=== PATIENT | male | born 1975 | race Caucasian/White ===

== ENCOUNTER 2019-05-27 08:51 | Outpatient (CLI) | payer MEDICAID, SELFPAY ==
[2019-05-28 14:17] LABS: HEP C RNA Viral Load Quant <1.18 DETECTED Log IU/mL (NOT DETECTED); HEP C RNA Viral Load Quant <15 DETECTED IU/mL (NOT DETECTED)
== END 2019-05-27 08:52 | disposition home or self-care (01) ==
PROVIDERS: Family Provider Family Medicine; PCP Internal Medicine; Visit Provider Internal Medicine
DX: B18.2 Chronic viral hepatitis C (principal)
CPT/HCPCS: 87522

== ENCOUNTER 2019-07-14 10:51 | Emergency (ER) | payer OTHER, SELFPAY ==
[2019-07-14 11:07] VITALS: BP 118/75; PULSE 81; RESP 16; TEMP 36.9; O2SAT 95; BMI 32.5
--- NOTE | 2019-07-14 11:16 | ED_ITS ---
HPI - Dental/Oral General: Chief complaint: Dental/Oral Stated complaint: MOUTH PAIN Time Seen by Provider: 07/14/19 11:12 History of Present Illness: HPI Narrative: Right lower molar pain. Pain in the gums. UNAble get into the dentist he is been on antibiotics. MD Complaint: tooth pain Teeth map: 1. Onset (ago): day(s) Duration: constant Severity: moderate Context: history of dental caries Associated symptoms: Reports gum swelling Review of Systems ENMT: Reports: dental pain Psych: Denies: anxiety or depression PFSH ED PFSH: Social History Smoking and tobacco status: former smoker Physical Exam HENMT: TEETH & GINGIVA IMAGES: 1. Swollen gum and at area dental caries present Psych: COMMON NORMALS: mental status grossly normal Course Vital Signs: Vital signs: Vital Signs Temperature 98.4 F 07/14/19 11:07 Pulse Rate 81 07/14/19 11:07 Respiratory Rate 16 07/14/19 11:07 Blood Pressure 118/75 07/14/19 11:07 Pulse Oximetry 95 07/14/19 11:07 Discharge Plan Discharge Prescriptions: No Action methadone 10 mg tablet 10 mg PO Q8H 30 Days Qty: 90 RF: 0 Coding Level of Care Code ED Executive Office Manager for Dirk Vanessa
== END 2019-07-14 11:48 | disposition home or self-care (01) ==
PROVIDERS: Emergency Provider Nurse Practitioner Family; Family Provider Family Medicine; PCP Internal Medicine
DX: K02.9 Dental caries, unspecified (principal); Z87.891 Personal history of nicotine dependence
CPT/HCPCS: 12345; 99281

== ENCOUNTER 2019-12-13 16:42 | Emergency (ER) | payer OTHER, MEDICAID, SELFPAY ==
[2019-12-13 16:47] VITALS: BP 141/95; PULSE 85; RESP 18; TEMP 36.3; O2SAT 100; BMI 32.5
--- NOTE | 2019-12-13 17:15 | XRR_ITS ---
PROCEDURE INFORMATION: Exam: XR Right Hand Exam date and time: 12/13/2019 5:39 PM Age: 44 years old Clinical indication: Right; Patient HX: Hand pain after throwing football; Additional info: Trauma/pain; Get additional scaphoid view TECHNIQUE: Imaging protocol: XR Right hand. Views: 3 or more views. COMPARISON: No relevant prior studies available. FINDINGS: Bones/joints: Comminuted mildly displaced fracture proximal aspect 1st metacarpal. Mildly impacted and mildly displaced. Mild degenerative changes first carpometacarpal joint. Soft tissues: Normal. XR/XR hand RT min 3V* [id number] IMPRESSION: Comminuted mildly displaced fracture proximal aspect 1st metacarpal. Mildly impacted and mildly displaced.
--- NOTE | 2019-12-13 17:15 | W.ED.UPPEXIN ---
HPI - Extremity Injury (Upper) General: Chief Complaint: Extremity Injury, Upper Stated Complaint: broken right arm Time Seen by Provider: 12/13/19 17:15 Source: patient Mode of arrival: ambulatory Limitations: no limitations History of Present Illness: HPI narrative: Patient is a 44-year-old male who presents to ED today with a complaint of right hand pain. Patient tells me he was throwing a softball earlier today when he followed through and accidentally struck a wall. complaint: injury to: right and hand Onset (ago): hour(s) Other Extremity Injury: Right: hand Other injuries: none Handedness: right Place: home Severity: moderate Relieving factors: immobilization Exacerbating factors: movement of extremity Context: direct blow Associated symptoms: Reports no associated symptoms Review of Systems Musc: Reports: extremity pain (R hand pain) and extremity swelling (R hand) Neuro: Denies: numbness in extremities or sensory changes PFSH ED PFSH: Social History Smoking and tobacco status: former smoker Physical Exam Const: COMMON NORMALS: no acute distress, patient oriented x3, no limitations and alert Extremity: GENERAL: Yes normal exam except as noted OTHER: pt with TTP of R base of 1st digit and into thenar eminence-swelling noted; dec ROM of 1st digit secondary to pain Neuro: COMMON NORMALS: patient oriented x3 and no sensory deficits noted SENSORIUM/ORIENTATION: Yes alert Skin: NARRATIVE SKIN EXAM: normal skin exam Course Vital Signs: Vital signs: Vital Signs Temperature 97.4 F L 12/13/19 16:47 Pulse Rate 85 12/13/19 16:47 Respiratory Rate 18 12/13/19 16:47 Blood Pressure 141/95 12/13/19 16:47 Pulse Oximetry 100 12/13/19 16:47 MDM - Extremity Injury (Upper) MDM Narrative: Medical decision making narrative: pt will be splinted-he will need followup with hand surgeon; information placed with CM to get this appointment set up within the week Imaging Data^: XR R hand: My impression: comminuted slightly displaced fx of base of 1st metacarpal Discharge Plan Discharge Patient Disposition: Home Clinical Impression: Fracture of first metacarpal Qualifiers: Encounter type: initial encounter Fracture type: closed Metacarpal location: base Fracture morphology: unspecified fracture morphology Fracture alignment: displaced Laterality: right Qualified Code(s): S62.231A - Other displaced fracture of base of first metacarpal bone, right hand, initial encounter for closed fracture Condition: Stable Prescriptions: New hydrocodone-acetaminophen 5-325 mg tablet 1 tab PO Q6H PRN (Reason: pain) Qty: 20 RF: 0 No Action carisoprodol [Soma] 350 mg tablet 350 mg PO BID PRN (Reason: muscle pain) Qty: 60 RF: 5 methadone 10 mg tablet 10 mg PO Q8H 30 Days Qty: 90 RF: 0 Lidocaine Viscous 2 % solution 1 applic MUCOUS MEM Q4H PRN (Reason: pain) Qty: 100 RF: 0 Discharge Orders: Discharge Order (Routine); Ordered 12/13/19 Ordered By: Nasrin Brown Referrals: Jason Askew [Primary Care Provider] - Activity Restrictions/Additional Instructions: As discussed you only follow-up with a hand surgeon. Case management should contact you in the next 1 to 2 days to help set you up with this appointment. [facility] also [facility] to see if [facility] can [facility] you [facility] with [facility]. Coding Level of Care Code ED Principal Cloud Architect for Chg Fwd Exam Expanded Problem Focused
[2019-12-13 18:18] VITALS: BP 148/67; PULSE 84; RESP 18; O2SAT 96
--- NOTE | 2019-12-14 10:04 | DCPLANNER ---
Addendum entered by Tina Montes De Oca 12/14/19 11:21: Patients called correctional case records supervisor back was told that patient [facility] with the [facility] and was told that patient could go to either to [facility] or [facility] whichever one patient wanted to go to. jewelry store manager spoke with , she stated that it did not matter. jewelry store manager faxed patients records to [facility], called patients and informed her that referral was sent to [facility]. Original Note: jewelry store manager had message to schedule a follow up appointment for patient with a hand surgeon in [place]. Patient has [facility] insurance, correctional case records supervisor called [facility] to report that patient was seen in the ED, and that patient needed to follow up with a hand surgeon in [place]. jewelry store manager emailed patients records to August with [facility] in a secure email. jewelry store manager was told that patient would need to see his PACT team to determine which clinic patient needs to follow up at. jewelry store manager called patient, unable to reach patient and no voicemail set up at this time. jewelry store manager called patients and spoke with her about follow up appointment. jewelry store manager explained that since it was a referral to [place], that patient would need to speak with his PACT team to determine which clinic patient would need to follow up at. jewelry store manager gave patients case fitter phone number to contact correctional case records supervisor when it was determined what clinic patient wanted to use and correctional case records supervisor would start the referral process if needed.
--- NOTE | 2019-12-15 12:27 | DCPLANNER ---
Patient has a follow up appointment scheduled for December at 11:00. Clinic will call patient with appointment information.
--- NOTE | 2019-12-24 13:59 | DCPLANNER ---
Patient did attend appointment scheduled for 12.16.19 with Maida Lewis.
== END 2019-12-13 18:20 | disposition home or self-care (01) ==
PROVIDERS: Emergency Provider Physician Assistant; PCP Internal Medicine
DX: S62.231A Other displaced fracture of base of first metacarpal bone, right hand, initial encounter for closed fracture (principal); Z87.891 Personal history of nicotine dependence; W22.8XXA Striking against or struck by other objects, initial encounter
CPT/HCPCS: 12345; 73130; 99281; 99283

== ENCOUNTER 2021-04-16 16:57 | Emergency (ER) | payer MEDICAID, SELFPAY ==
[2021-04-16 17:04] VITALS: BP 132/87; PULSE 89; RESP 18; TEMP 36.7; O2SAT 98; BMI 32.5
--- NOTE | 2021-04-16 17:11 | XRR_ITS ---
PROCEDURE INFORMATION: Exam: XR Right Foot Exam date and time: 04/16/2021 5:11 PM Age: 45 years old Clinical indication: Patient HX: Injury: Kicked wooden door frame, right foot pain TECHNIQUE: Imaging protocol: XR Right foot. Views: 3 or more views. COMPARISON: No relevant prior studies available. FINDINGS: Bones/joints: Normal. Soft tissues: Normal. XR/XR foot RT min 3V* [id number] IMPRESSION: No acute findings.
--- NOTE | 2021-04-16 17:12 | ED_ITS ---
HPI - Extremity Problem General: Chief complaint: Extremity Injury, Lower Stated complaint: RIGHT FOOT INJURY Time Seen by Provider: 04/16/21 17:12 History of Present Illness: HPI Narrative: 45-year-old male patient comes in today with complaints of right foot pain after injury. Patient states that he had struck the door with his foot. Patient reports mid foot pain and great toe pain on the right foot. Patient appears well. Minimal swelling is noted. No obvious deformity is noted. Review of Systems General: Reports: 10 or more systems reviewed and unremarkable except in HPI and below Musc: Reports: other (Right foot injury) PENDING SALE TO [facility] ED PFSH: Medical History (Updated 04/16/21 @ 17:47 by ELISSA Vaca) Cervical disc disease First metacarpal bone fracture Social History (Updated 01/25/20 @ 08:27 by Lolis James LPN) Smoking and tobacco status: former smoker Alcohol intake: never Physical Exam Const: COMMON NORMALS: no acute distress and patient oriented x3 GENERAL APPEARANCE: cooperative HENMT: COMMON NORMALS: normocephalic HEAD & SCALP: normal to inspection and normocephalic Eye: GENERAL EYE: appearance normal, both eyes and all related structures Neck/C-Spine: COMMON NORMALS: full ROM Chest: COMMONS NORMALS: normal inspection of the chest Resp: COMMON NORMALS: normal respiratory effort EFFORT & INSPECTION: Yes able to speak in complete sentences Cardio: COMMON NORMALS: regular rate and regular rhythm RATE: regular rate RHYTHM: regular rhythm GI: COMMON NORMALS: non-tender Extremity: NARRATIVE EXTREMITY EXAM: Tenderness is noted in the distal great toe of the right foot, tenderness is also noted to the dorsal foot. No obvious swelling, pulses are intact, normal tendon function is noted. Neuro: COMMON NORMALS: patient oriented x3 and moves all extremities Psych: COMMON NORMALS: mental status grossly normal and cooperative Skin: COMMON NORMALS: no rashes or lesions noted GENERAL SKIN EXAM: no rashes or lesions noted Course Vital Signs: Vital signs: Vital Signs Temperature 98.1 F 04/16/21 17:04 Pulse Rate 89 04/16/21 17:30 Respiratory Rate 18 04/16/21 17:04 Blood Pressure 132/87 04/16/21 17:04 Pulse Oximetry 98 04/16/21 17:04 MDM - Extremity (Nontraumatic) MDM Narrative: Medical decision making narrative: Is in for injury to the right foot. On exam patient has tenderness on palpation to the great toe of the right foot. Patient also has some dorsal tenderness. Pulses are intact. No obvious swelling is noted. No obvious ecchymosis is noted. Vital signs are normal. Differential diagnosis includes fracture, contusion, sprain. X-ray notes a possible fracture of the great toe with no displacement. No other obvious fracture is noted.Patient will be placed in a postop shoe with elastic bandage. Patient was recommended to increase activity as tolerated. Use ice packs and elevation for discomfort. Also use acetaminophen and ibuprofen for further pain control. Patient reported understanding with recommendations for follow-up or return to the ER. Discharge Plan Discharge Patient Disposition: Home Clinical Impression: Fracture of toe Qualifiers: Encounter type: initial encounter Toe: great toe Fracture type: closed Phalanx: distal Fracture alignment: nondisplaced Laterality: right Qualified Code(s): S92.424A - Nondisplaced fracture of distal phalanx of right great toe, initial encounter for closed fracture Foot fracture, right Qualifiers: Encounter type: initial encounter Fracture type: closed Qualified Code(s): S92.901A - Unspecified fracture of right foot, initial encounter for closed fracture Condition: Stable Prescriptions: No Action carisoprodol [Soma] 350 mg tablet 350 mg PO BID PRN (Reason: muscle pain) Qty: 60 RF: 5 methadone 10 mg tablet 10 mg PO Q8H 30 Days Qty: 90 RF: 0 Discharge Orders: Discharge ED (Routine); Ordered 04/16/21 Ordered By: Dilshad Bonilla Referrals: Jason Askew [Primary Care Provider] - Discharge Diet: Usual diet Discharge Activity: Increase activity as tolerated Patient Instructions: Fractures - Phalanx (Toe), Opioid Safety Activity Restrictions/Additional Instructions: Activity as tolerated. Use a good supportive shoe. Elevate foot as much as possible for the next 2 to 3 days. Use acetaminophen and ibuprofen for pain. Use ice packs for further pain relief. Use crutches if needed due to inability to bear weight on foot. Follow-up with primary care in 1 week for recheck if pain persist without any improvement. Return to ER for new concerns. Stand Alone Forms: Work/School Release Coding Level of Care Code ED Fat Pressroom Worker for Dirk Vanessa
[2021-04-16 17:30] VITALS: PULSE 89
[2021-04-16 17:56] VITALS: PULSE 99; RESP 18; O2SAT 97
== END 2021-04-16 17:56 | disposition home or self-care (01) ==
PROVIDERS: Emergency Provider Nurse Practitioner Family; PCP Internal Medicine
DX: S92.424A Nondisplaced fracture of distal phalanx of right great toe, initial encounter for closed fracture (principal); S92.901A Unspecified fracture of right foot, initial encounter for closed fracture; Z87.891 Personal history of nicotine dependence; W22.09XA Striking against other stationary object, initial encounter
CPT/HCPCS: 73630; 99283; E0114

== ENCOUNTER → 2021-05-02 08:34 | Outpatient (BNVA) | payer OTHER, MEDICAID, SELFPAY | PROVIDERS: PCP Internal Medicine; Referring Provider Family Medicine; Visit Provider Internal Medicine | DX: E29.1 Testicular hypofunction (principal); E23.7 Disorder of pituitary gland, unspecified; F11.90 Opioid use, unspecified, uncomplicated; Z87.891 Personal history of nicotine dependence | CPT/HCPCS: 99204 ==

== ENCOUNTER 2021-05-03 07:38 | Outpatient (CLI) | payer OTHER, MEDICAID, SELFPAY ==
[2021-05-03 08:15] LABS: Basophils # 0.1 10^3/uL (0.0-0.1); Basophils % 0.8 %; Eosinophils # 0.4 10^3/uL (0.0-0.8); Eosinophils % 3.7 %; Hematocrit 50.8 % (42.0-52.0); Hemoglobin 17.4 g/dL (11.7-16.6); Lymphocytes # 3.9 10^3/uL (0.8-4.8); Mean Corpuscular HGB Conc 34.3 g/dL (30.0-36.0); Mean Corpuscular Hemoglobin 28.5 pg (28.0-34.0); Mean Corpuscular Volume 83.1 fl (80-94); Mean Platelet Volume 9.5 fL (7.4-10.4); Monocytes # 0.7 10^3/uL (0.2-0.9); Monocytes % 5.9 %; Neutrophils # 6.27 10^3/uL (1.8-7.7); Neutrophils % 55.3 %; Nucleated Red Blood Cells % 0 %; Platelet Count 455 10^3/cmm (130-400); Red Blood Count 6.11 10^6/uL (4.1-5.3); Red Cell Distribution Width 14.3 % (12.1-15.1); White Blood Count 11.3 10^3/uL (4.0-10.0)
[2021-05-03 08:53] LABS: Free T4 Free Thyroxine 1.02 ng/dL (0.82-1.77); Prostate Specific Antigen 0.258 ng/mL (0-4); Testosterone Total 53.6 ng/dL (249-836); Thyroid Stimulating Hormone 2.79 uIU/mL (0.27-4.20)
[2021-05-03 09:14] LABS: Cortisol Random 9.35 ug/dL (2.47-19.5)
[2021-05-03 09:37] LABS: Follicle Stimulating Hormone 4.5 mIU/mL (1.5-12.4); Luteinizing Hormone 1.4 mIU/mL (1.7-8.6); Prolactin 13.84 ng/mL (4.0-15.2)
== END 2021-05-03 07:39 | disposition home or self-care (01) ==
LOC: LAB 07:41
PROVIDERS: PCP Internal Medicine; Visit Provider Internal Medicine
DX: E23.7 Disorder of pituitary gland, unspecified (principal); E29.1 Testicular hypofunction
CPT/HCPCS: 36415; 82533; 83001; 83002; 84146; 84153; 84402; 84403; 84439; 84443; 85025

== ENCOUNTER 2021-05-04 07:46 | Outpatient (CLI) | payer MEDICAID, SELFPAY ==
[2021-05-04 08:23] LABS: Ferritin 130 ng/mL (30-400); Iron 124 ug/dL (59-158)
== END 2021-05-04 07:47 | disposition home or self-care (01) ==
PROVIDERS: PCP Internal Medicine; Visit Provider Internal Medicine
DX: E23.7 Disorder of pituitary gland, unspecified (principal); E29.1 Testicular hypofunction
CPT/HCPCS: 82728; 83540

== ENCOUNTER 2021-05-24 12:28 | Inpatient (IN) | payer MEDICAID, SELFPAY ==
[2021-05-24] VITALS (12 sets, daily range): BP systolic 127–172; BP diastolic 77–110; PULSE 94; RESP 16; TEMP 36.8; O2SAT 92–99; BMI 29.8
--- NOTE | 2021-05-24 12:48 | CT_ITS ---
WS: [id number] CT HEAD NONCONTRAST HISTORY: AMS TECHNIQUE: Contiguous axial imaging performed through the brain in 2.5 mm imaging. Bone and soft tiss ue windows. Sagittal and coronal reformats reviewed. All CT scans at [facility] use at least one of these dose optimization techniques: automated exposure control; mA and/or kV adjustment per pa tient size (includes targeted exams where dose is matched to clinical indication); or iterative recon struction. DLP: 1107.18 mGy.cm COMPARISON: None available. Artifacts through the brain as the patient has not isocentered within the gantry. No midline shift or mass effect. No acute blood products are identified. Small focal areas of hemorrh age would be easily be obscured with this amount of artifact through the skull. There is a prior lacu michaelle infarct in the internal limb of the LEFT internal capsule. Moderate chronic microvascular ischemi c type changes in the white matter, greatest above the ventricles. Ventricles: Normal size with no hydrocephalus. Paranasal sinuses: Mucoperiosteal thickening in the RIGHT maxillary and ethmoid sinuses. No air-fluid levels. Mastoid air cells: Moderate amount of fluid in the RIGHT mastoid air cells. LEFT mastoid air cells ar e clear. Calvarium and scalp: Skull is intact with no soft tissue edema or swelling. CT/CT head wo con* [id number] IMPRESSION: 1. Quality of this examination is limited by artifact. 2. No acute hemorrhage or edema. 3. Mild chronic microvascular ischemic type changes and a remote lacunar infar ct in the LEFT internal capsule.
[2021-05-24] MEDS: midazolam 1 mg/mL INJ 2 mL 2 MG IVP (13:44)
--- NOTE | 2021-05-24 13:46 | ED_ITS ---
HPI - Altered Mental Status General: Chief Complaint: Altered Mental Status Stated Complaint: AMS, BACK PAIN Time Seen by Provider: 05/24/21 12:29 Source: family and EMS Mode of arrival: EMS Limitations: altered mental status History of Present Illness: HPI narrative: 45-year-old male brought in by EMS with generalized weakness and confusion, worsening over the past 3 days. History of chronic back pain, on methadone. He has been moving lots of heavy furniture over the last week, and has been complaining of increased back pain. He is also been complaining of chest pain, headache, and right arm pain Was in bed all day yesterday, not eating or drinking. This morning he was confused, incoherent, had urinated on himself overnight, and not able to ambulate at all. No recent trauma. No fever. No sick contacts. No nausea, vomiting. No roye-tby-flxfeza medications. No recent changes methadone dose. As far as the knows, he has been taking only the prescribed amount daily, no extra doses. He does have a history of polysubstance abuse, but no current alcohol or drug use per . MD complaint: altered mental status, confusion, decreased responsiveness and weakness Onset (ago): day(s) Timing confirmed by: spouse Severity: severe Consistency of symptoms: Waxing and Waning Review of Systems General: Reports: ROS unobtainable due to mental status [facility] ED PFSH: Medical History Cervical disc disease Chronic hepatitis C Depression First metacarpal bone fracture Surgical History History of knee surgery Family History Father No problems noted. Mother Dementia Social History Smoking and tobacco status: former smoker Quit status (tobacco): has quit using tobacco Second hand smoke exposure: No Smoking risk assessment/counseling performed?: No Alcohol intake: never Desire information about alcohol rehabilitation?: No Counseling given: No Desire information about substance/drug rehabilitation?: No Counseling given: No Adopted: No Caregiver/support person: No Lives independently: Yes Household members: spouse Housing: House Marital status: Number of children: 1 Highest education level completed: Some College, No Degree service: Yes Current occupational status: disabled History of recent travel: No Physical Exam Const: EXAM LIMITATIONS: altered mental status GENERAL APPEARANCE: lethargic and ill appearing; not diaphoretic NUTRITIONAL APPEARANCE: overweight ORIENTATION/CONSCIOUSNESS: Yes confused and Yes lethargic HENMT: COMMON NORMALS: normocephalic, atraumatic and Normal external nose present HEAD & SCALP: normocephalic and atraumatic FACE & SINUS: normal facial exam and face symmetric NOSE: Normal external nose present MOUTH: malodorous breath Eye: COMMON NORMALS: conjunctivae normal and no scleral icterus GENERAL EYE: appearance normal, both eyes and all related structures CONJUNCTIVA: Yes conjunctivae normal PUPIL: Yes pupil size - right Right pupil size (mm): 2 and Yes pupil size - left EOM: No Nystagmus present DIRECT OPHTHALMOSCOPY: No photophobia Neck/C-Spine: COMMON NORMALS: no JVD Lymph: LYMPHATIC: no lymphadenopathy noted Chest: COMMONS NORMALS: normal inspection of the chest Resp: EFFORT & INSPECTION: Yes labored Cardio: COMMON NORMALS: no JVD, regular rate and regular rhythm RATE: regular rate RHYTHM: regular rhythm GI: COMMON NORMALS: Soft to palpation PALPATION: Yes Soft to palpation and Yes Tenderness to palpation present (GI) (diffuse) Back/Pelvis: COMMON NORMALS: thoracic and lumbar spine normal to inspection GENERAL BACK: No erythema, No ecchymosis, No scar(s), No swelling, No tenderness and No Romero-Meyer sign THORACIC SPINE/UPPER BACK: Yes normal to inspection LUMBAR SPINE/LOWER BACK: Yes normal to inspection and No lumbar spinal tenderness SACRUM: no ecchymosis Extremity: COMMON NORMALS: capillary refill normal Neuro: SEVERIANO COMA SCALE: document GCS findings [place] coma scale eye opening: Spontaneous Severiano coma scale verbal response: Confused [place] coma scale motor response: Abnormal flexion Severiano coma scale total score: 11 SENSORIUM/ORIENTATION: Yes Orientation impaired and Yes lethargic SPEECH: abnormal speech Details: garbled and slurred GAIT: Yes Unable to assess gait SENSORY EXAM: Yes Perineum abnormal Perineum sensation details: normal MOTOR EXAM: Abnormal muscle tone present hypertonic: all and Motor abnormalites present dystonia DEEP TENDON REFLEXES: Right patellar reflex intensity grade: 1+ and Left patellar reflex intensity grade: 1+ Procedures EJ/Peripheral Line Neck R: Time Out Performed: Yes Skin Cleansed in Sterile Fashion: Yes Size (gauge): 18 IV Secured and Dressing Applied: Yes Patient Tolerated Procedure: well Additional Comments: Right Internal jugular vein with a 2.5in peripheral catheter Lumbar Puncture Time Out Performed: Yes Patient Position: right lateral decubitus Skin Prep: Povidone-Iodine 1% Local Anesthetic: lidocaine 1% Amount of anesthesia used (mL): 3 Spinal Needle Gauge: 22G Interspace Used: L4-L5 Complications: unable to obtain CSF Course Vital Signs: Vital signs: Vital Signs Temperature 98.2 F 05/24/21 12:32 Pulse Rate 94 05/24/21 12:32 Respiratory Rate 16 05/24/21 12:32 Blood Pressure 143/110 05/24/21 22:00 Pulse Oximetry 99 05/24/21 22:00 MDM - Altered Mental Status MDM Narrative: Medical decision making narrative: 45-year-old male with altered mental status. Afebrile. CT head negative for any acute process. CK 7781, decreased to 5778 following 3L fluid bolus LFTs also elevated, likely in conjunction with rhabdomyolysis CRP, Pro-Juan, and WBC count elevated. No bandemia. Patchy bilateral infiltrates on imaging. Treated with Cefepime 2g IV x1 Respiratory panel; Coronovirus (other) positive (not COVID-19) No other acute abnormalities on CT abdomen/pelvis LP attempted, unsuccessful. Admit for continued workup, LP under fluoro, blood cultures, Discussed with Dr Yang; he accepts the admission Differential DDx: Meningitis, infectious/autoimmune encephalitis, metabolic encephalopathy, cauda equina syndrome, spinal epidural abscess, polysubstance abuse, drug-induced rhabdomyolysis, acute kidney injury, CVA,sepsis, pneumonia. Differential Diagnosis: Differential diagnosis altered mental status: Likely altered mental status, delirium, hypoglycemia, hyponatremia, subarachnoid hemorrhage and sepsis Medical Records: Attestation: I reviewed the patient's medical records. Lab Data: Attestation: I reviewed the patient's lab results. Labs: Lab Results 05/24/21 05/24/21 05/24/21 13:40 13:40 13:40 WBC 14.6 10^3/uL H 10 ^3/uL (4.0-10.0) RBC 5.12 10^6/uL 10^6 /uL (4.1-5.3) Hgb 14.6 g/dL g/dL (11.7-16.6) Hct 42.9 % % (42.0-52.0) MCV 83.8 fl fl (80-94) MCH 28.5 pg pg (28.0-34.0) MCHC 34.0 g/dL g/dL (30.0-36.0) RDW 14.3 % % (12.1-15.1) Plt Count 279 10^3/cmm 10^3 /cmm (130-400) MPV 10.1 fL fL (7.4-10.4) Neut % (Auto) 84.4 % % Lymph % (Auto) 10.0 % % Phelps % (Auto) 4.7 % % Eos % (Auto) 0.0 % % Baso % (Auto) 0.3 % % Neut # (Auto) 12.31 10^3/uL H 1 0^3/uL (1.8-7.7) Lymph # (Auto) 1.5 10^3/uL 10^3/ uL (0.8-4.8) Phelps # (Auto) 0.7 10^3/uL 10^3/ uL (0.2-0.9) Eos # (Auto) 0.0 10^3/uL 10^3/ uL (0.0-0.8) Baso # (Auto) 0.0 10^3/uL 10^3/ uL (0.0-0.1) Nucleated RBC % (a uto) 0 % % Nucleated RBCs # 0.0 /100WBC /100W BC Specimen Type Sample Site ABG pH ABG pCO2 ABG pO2 ABG HCO3 ABG O2 Saturation ABG Base Excess James Test A-a O2 Gradient Hematocrit Hgb O2 Saturation Carboxyhemoglobin Methemoglobin Total Hemoglobin Ionized Calcium O2 Delivery Device O2 Liters/Min FiO2 Drying Machine Receiver ID Sodium 140 mmol/L mmol/L (136-145) Potassium 4.4 mmol/L mmol/L (3.5-5.1) Chloride 101 mmol/L mmol/L (98-107) Carbon Dioxide 23 mmol/L mmol/L (22-29) Anion Gap 20.4 H (5-19) BUN 29 mg/dL H mg/dL (6-20) Creatinine 1.2 mg/dL mg/dL (0.7-1.2) GFR Calculation 66.1 mL/min L mL/ min (90-130) Glucose 101 mg/dL mg/dL (65-115) Calculated Osmolal ity 296 mOsm/kg H mOs m/kg (285-295) Lactic Acid Calcium 8.6 mg/dL mg/dL (8.5-10.5) Magnesium 2.2 mg/dL mg/dL (1.7-2.3) Total Bilirubin 0.5 mg/dL mg/dL (0.15-1.2) AST 916 U/L H U/L (0-40) ALT 1282 U/L H U/L (0-41) Alkaline Phosphata se 107 IU/L IU/L (40-130) Ammonia 27 umol/L umol/L (16-60) Creatine Kinase 7781 U/L H* U/L (39-308) C-Reactive Protein 178.9 mg/L H mg/L (0.0-4.9) Total Protein 7.5 g/dL g/dL (6.6-8.7) Albumin 3.9 g/dL g/dL (3.5-5.2) Globulin 3.6 g/dL g/dL (1.3-4.6) Procalcitonin 13.92 ng/mL H ng/ mL (0-0.5) Urine Color Urine Appearance Urine pH Ur Specific Gravit y Urine Protein Urine Glucose (UA) Urine Ketones Urine Blood Urine Nitrate Urine Bilirubin Urine Urobilinogen Ur Leukocyte Fransisca ase Urine RBC Urine WBC Ur Squamous Epith Cells Amorphous Sediment Urine Bacteria Urine Opiates Scre en Ur Barbiturates Sc reen Ur Phencyclidine S crn Ur Amphetamines Sc reen U Benzodiazepines Scrn Urine Cocaine Scre en U Marijuana (THC) Screen Ethyl Alcohol < 10 mg/dL mg/dL (0-10) Coronavirus 229E ( PCR) SARS-CoV-2 (PCR) 05/24/21 05/24/21 05/24/21 13:40 13:45 14:57 WBC RBC Hgb Hct MCV MCH MCHC RDW Plt Count MPV Neut % (Auto) Lymph % (Auto) Phelps % (Auto) Eos % (Auto) Baso % (Auto) Neut # (Auto) Lymph # (Auto) Phelps # (Auto) Eos # (Auto) Baso # (Auto) Nucleated RBC % (a uto) Nucleated RBCs # Specimen Type Sample Site ABG pH ABG pCO2 ABG pO2 ABG HCO3 ABG O2 Saturation ABG Base Excess James Test A-a O2 Gradient Hematocrit Hgb O2 Saturation Carboxyhemoglobin Methemoglobin Total Hemoglobin Ionized Calcium O2 Delivery Device O2 Liters/Min FiO2 Drying Machine Receiver ID Sodium Potassium Chloride Carbon Dioxide Anion Gap BUN Creatinine GFR Calculation Glucose Calculated Osmolal ity Lactic Acid 1.6 mmol/L mmol/L (0.5-2.2) Calcium Magnesium Total Bilirubin AST ALT Alkaline Phosphata se Ammonia Creatine Kinase C-Reactive Protein Total Protein Albumin Globulin Procalcitonin Urine Color Yellow (Yellow) Urine Appearance Clear (CLEAR) Urine pH 6 (5-7) Ur Specific Gravit y 1.010 (1.005-1.030) Urine Protein Neg (Negative) Urine Glucose (UA) Norm (Normal) Urine Ketones Negative (Negative) Urine Blood 2+ H (Negative) Urine Nitrate Negative (Negative) Urine Bilirubin Neg (Negative) Urine Urobilinogen 1 mg/dL H mg/dL (Negative) Ur Leukocyte Fransisca ase Negative (Negative) Urine RBC 0-4 /hpf H /hpf (0-2) Urine WBC Rare /hpf /hpf (0-5) Ur Squamous Epith Cells None /hpf /hpf (0-5) Amorphous Sediment Not Reportable Urine Bacteria None /hpf /hpf (NONE) Urine Opiates Scre en Ur Barbiturates Sc reen Ur Phencyclidine S crn Ur Amphetamines Sc reen U Benzodiazepines Scrn Urine Cocaine Scre en U Marijuana (THC) Screen Ethyl Alcohol Coronavirus 229E ( PCR) Detected A (NOT DETECT) SARS-CoV-2 (PCR) Not detected (NOT DETECT) 05/24/21 05/24/21 05/24/21 14:57 15:09 18:20 WBC RBC Hgb Hct MCV MCH MCHC RDW Plt Count MPV Neut % (Auto) Lymph % (Auto) Phelps % (Auto) Eos % (Auto) Baso % (Auto) Neut # (Auto) Lymph # (Auto) Phelps # (Auto) Eos # (Auto) Baso # (Auto) Nucleated RBC % (a uto) Nucleated RBCs # Specimen Type Arterial Sample Site Radial, left ABG pH 7.47 H (7.35-7.45) ABG pCO2 31.5 mmHg L mmHg (35-45) ABG pO2 91.2 mmHg mmHg (80.0-100.0) ABG HCO3 23.1 mmol/L mmol/ L (22-26) ABG O2 Saturation 98.2 ABG Base Excess 0.3 mmol/L mmol/L (-2.0-2.0) James Test Pos A-a O2 Gradient 5.5 mmHg mmHg (5-10) Hematocrit 42.7 % % (42-52) Hgb O2 Saturation 97.3 % % (95-100) Carboxyhemoglobin 0.5 %THgb %THgb (0.4-20.1) Methemoglobin 0.4 % % (0.4-1.5) Total Hemoglobin 13.9 g/dL L g/dL (14-18) Ionized Calcium 1.1 mmol/L mmol/L (1.1-1.4) O2 Delivery Device Nc O2 Liters/Min 1.0 % % FiO2 24.0 % % Drying Machine Receiver ID Monro Sodium 145.0 mmol/L H mm ol/L 143 mmol/L mmol/L (131-143) (136-145) Potassium 4.1 mmol/L mmol/L 4.4 mmol/L mmol/L (3.5-5.0) (3.5-5.1) Chloride 108 mmol/L H mmol /L (98-107) Carbon Dioxide 21 mmol/L L mmol/ L (22-29) Anion Gap 18.4 (5-19) BUN 26 mg/dL H mg/dL (6-20) Creatinine 1.1 mg/dL mg/dL (0.7-1.2) GFR Calculation 73.1 mL/min L mL/ min (90-130) Glucose 103.0 mg/dL mg/dL 92 mg/dL mg/dL (70-115) (65-115) Calculated Osmolal ity 300 mOsm/kg H mOs m/kg (285-295) Lactic Acid Calcium 7.9 mg/dL L mg/dL (8.5-10.5) Magnesium 2.0 mg/dL mg/dL (1.7-2.3) Total Bilirubin 0.5 mg/dL mg/dL (0.15-1.2) AST 694 U/L H U/L (0-40) ALT 1081 U/L H U/L (0-41) Alkaline Phosphata se 96 IU/L IU/L (40-130) Ammonia Creatine Kinase 5778 U/L H* U/L (39-308) C-Reactive Protein Total Protein 6.6 g/dL g/dL (6.6-8.7) Albumin 3.5 g/dL g/dL (3.5-5.2) Globulin 3.1 g/dL g/dL (1.3-4.6) Procalcitonin Urine Color Urine Appearance Urine pH Ur Specific Gravit y Urine Protein Urine Glucose (UA) Urine Ketones Urine Blood Urine Nitrate Urine Bilirubin Urine Urobilinogen Ur Leukocyte Fransisca ase Urine RBC Urine WBC Ur Squamous Epith Cells Amorphous Sediment Urine Bacteria Urine Opiates Scre en Negative ng/mL ng /mL (Negative) Ur Barbiturates Sc reen Negative ng/mL ng /mL (Negative) Ur Phencyclidine S crn Negative ng/mL ng /mL (Negative) Ur Amphetamines Sc reen Negative ng/mL ng /mL (Negative) U Benzodiazepines Scrn Negative ng/mL ng /mL (Negative) Urine Cocaine Scre en Negative ng/mL ng /mL (Negative) U Marijuana (THC) Screen Negative ng/mL ng /mL (Negative) Ethyl Alcohol Coronavirus 229E ( PCR) SARS-CoV-2 (PCR) Critical Care Time Critical Care Time: Critical Care Time: Yes Total Critical Care Time: 60 Attestation: This case had a high probability of a clinically significant, sudden, or life threatening deterioration of this patient's condition which required my full and direct attention, intervention and personal management. Neuro deterioration, encephalopathy, decreased responsiveness serial examinations and lab review Discharge Plan Discharge Patient Disposition: Admitted As Inpatient Admit Provider: Michele Yang Clinical Impression: Encephalopathy acute, Other coronavirus as the cause of diseases classified elsewhere Altered mental status Qualifiers: Altered mental status type: somnolence Qualified Code(s): R40.0 - Somnolence Pneumonia Qualifiers: Pneumonia type: due to unspecified organism Laterality: bilateral Lung location: unspecified part of lung Qualified Code(s): J18.9 - Pneumonia, unspecified organism Rhabdomyolysis Qualifiers: Rhabdomyolysis type: non-traumatic Qualified Code(s): M62.82 - Rhabdomyolysis Chronic low back pain Qualifiers: Back pain laterality: bilateral Sciatica presence: unspecified whether sciatica present Qualified Code(s): M54.50 - Low back pain, unspecified Condition: Stable Coding Level of Care Code ED 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
[2021-05-24 13:49] LABS: Basophils % 0.3 %; Hematocrit 42.9 % (42.0-52.0); Hemoglobin 14.6 g/dL (11.7-16.6); Lymphocytes # 1.5 10^3/uL (0.8-4.8); Mean Corpuscular Hemoglobin 28.5 pg (28.0-34.0); Mean Corpuscular Volume 83.8 fl (80-94); Mean Platelet Volume 10.1 fL (7.4-10.4); Monocytes # 0.7 10^3/uL (0.2-0.9); Monocytes % 4.7 %; Neutrophils # 12.31 10^3/uL (1.8-7.7); Neutrophils % 84.4 %; Nucleated Red Blood Cells % 0 %; Platelet Count 279 10^3/cmm (130-400); Red Blood Count 5.12 10^6/uL (4.1-5.3); Red Cell Distribution Width 14.3 % (12.1-15.1); White Blood Count 14.6 10^3/uL (4.0-10.0)
[2021-05-24 14:09] LABS: Lactic Sepsis W/Reflex 1.6 mmol/L (0.5-2.2)
[2021-05-24 14:10] LABS: Ammonia 27 umol/L (16-60)
[2021-05-24 14:12] LABS: Albumin Level 3.9 g/dL (3.5-5.2); Alkaline Phosphatase 107 IU/L (40-130); Anion Gap 20.4 (5-19); Blood Urea Nitrogen 29 mg/dL (6-20); C Reactive Protein 178.9 mg/L (0.0-4.9); Calcium 8.6 mg/dL (8.5-10.5); Carbon Dioxide 23 mmol/L (22-29); Chloride 101 mmol/L (98-107); Globulin 3.6 g/dL (1.3-4.6); Glomerular Filtration Rate 66.1 mL/min (90-130); Glucose 101 mg/dL (65-115); Magnesium 2.2 mg/dL (1.7-2.3); Osmolality Calculated 296 mOsm/kg (285-295); Potassium 4.4 mmol/L (3.5-5.1); Sodium 140 mmol/L (136-145); Total Bilirubin 0.5 mg/dL (0.15-1.2); Total Protein 7.5 g/dL (6.6-8.7)
[2021-05-24 14:17] LABS: Alcohol Level < 10 mg/dL (0-10)
--- NOTE | 2021-05-24 14:17 | XR_ITS ---
WS: [id number] Exam: XR chest 1V portable [id number] Date/Time of Exam: 05/24/2021 2:17 PM Reason For Exam: Altered mental status, chest pain Comparison 06/10/2010. Groundglass infiltrate seen throughout the left lung suggesting active pneumonia. There may be some m ild infiltrate in the right upper lung zone also. Chronic elevation of the right diaphragm. Normal ca rdiomediastinal silhouette for technique. Trace right pleural effusion. Bony structures are intact. XR/XR chest 1V portable [id number] IMPRESSION: 1. Diffuse groundglass infiltrate throughout the left lung. There may be some i nfiltrate in the upper right lung zone also. Findings suggest pneumonia. The pa ttern is nonspecific but this could be seen with Covid pneumonia. 2. Trace right pleural effusion.
[2021-05-24 14:18] LABS: Procalcitonin 13.92 ng/mL (0-0.5)
[2021-05-24 14:23] LABS: Alanine Aminotransferase 1282 U/L (0-41)
[2021-05-24 14:26] LABS: Aspartate Amino Transferase 916 U/L (0-40); Creatine Phosphokinase 7781 U/L (39-308)
[2021-05-24] MEDS: sodium chloride 0.9% 1,000 ML 999 ML IV ×2 (14:34→15:18)
[2021-05-24 15:11] LABS: Add Urine Microscopic? YES; Bilirubin Urine Neg (Negative); Blood Urine 2+ (Negative); Glucose Urine UA Norm (Normal); Ketones Urine Negative (Negative); Leukocyte Esterase Urine Negative (Negative); Nitrate Urine Negative (Negative); Protein Urine Neg (Negative); Urine Appearance Clear (CLEAR); Urine Color Yellow (Yellow); Urobilinogen Urine 1 mg/dL (Negative); pH Urine 6 (5-7)
[2021-05-24 15:17] LABS: Add Urine Culture? No; RBC Urine 0-4 /hpf (0-2); WBC Urine RARE /hpf (0-5)
[2021-05-24 15:18] LABS: Amphetamines Screen Urine Negative (Negative); Barbiturates Screen Urine Negative (Negative); Benzodiazepines Screen Urine Negative (Negative); Cocaine Screen Urine Negative (Negative); Opiate Screen Urine Negative (Negative); PCP Screen Urine Negative (Negative); THC Screen Urine Negative (Negative)
[2021-05-24 15:31] LABS: ABG PCO2 31.5 mmHg (35-45); ABG PH Result 7.47 (7.35-7.45); Arterial Blood Gas Hematocrit 42.7 % (42-52); Base Excess ABG 0.3 mmol/L (-2.0-2.0); Blood Gas Allen Test Pos; Blood Gas Sample Type Arterial; Carboxyhemoglobin 0.5 %THgb (0.4-20.1); HCO3 ABG 23.1 mmol/L (22-26); HGB O2 Sat 97.3 % (95-100); Ionized Calcium Level - ABG 1.1 mmol/L (1.1-1.4); Methemoglobin 0.4 % (0.4-1.5); Oxygen Saturation ABG 98.2; PO2 ABG 91.2 mmHg (80.0-100.0); Potassium Level - ABG 4.1 mmol/L (3.5-5.0); Total Hemoglobin 13.9 g/dL (14-18)
[2021-05-24 15:32] LABS: Alveolar-Arterial Oxygen Gradi 5.5 mmHg (5-10); Blood Gas Operator Identificat MONRO; Blood Gas Sample Site Radial, left; Oxygen Device NC
[2021-05-24] MEDS: LORazepam 2 mg/mL INJ 1 mL IVP (16:10)
[2021-05-24] MEDS: cefepime 2,000 MG in sodium chloride 0.9% (plus) 50 ML 100 MG IV (16:10)
[2021-05-24 16:14] LABS: Adenovirus Not Detected (NOT DETECT); Chlamydia Pneumoniae Not Detected (NOT DETECT); Coronavirus 229E,HKU1,NL63,OC4 Detected (NOT DETECT); Human Metapneumovirus Not Detected (NOT DETECT); Human Rhinovirus/Enterovirus Not Detected (NOT DETECT); Influenza A Not Detected (NOT DETECT); Influenza A H1 Not Detected (NOT DETECT); Influenza A H1-2009 Not Detected (NOT DETECT); Influenza A H3 Not Detected (NOT DETECT); Influenza B Not Detected (NOT DETECT); Mycoplasma Pneumoniae Not Detected (NOT DETECT); Parainfluenza Virus Type 1 Not Detected (NOT DETECT); Parainfluenza Virus Type 2 Not Detected (NOT DETECT); Parainfluenza Virus Type 3 Not Detected (NOT DETECT); Parainfluenza Virus Type 4 Not Detected (NOT DETECT); Respiratory Syncytial Virus A Not Detected (NOT DETECT); Respiratory Syncytial Virus B Not Detected (NOT DETECT); SARS-COV-2 Not Detected (NOT DETECT)
--- NOTE | 2021-05-24 16:31 | CTR_ITS ---
PROCEDURE INFORMATION: Exam: CT Chest Without Contrast; Diagnostic Exam date and time: 05/24/2021 4:31 PM Age: 45 years old Clinical indication: Other: Weakness; Patient HX: Abdominal tenderness w/ abnormal xray. AMS; Additional info: Abnormal xray, abdominal tenderness, altered TECHNIQUE: Imaging protocol: Diagnostic computed tomography of the chest without contrast. Radiation optimization: All CT scans at this facility use at least one of these dose optimization techniques: automated exposure control; mA and/or kV adjustment per patient size (includes targeted exams where dose is matched to clinical indication); or iterative reconstruction. COMPARISON: CR XR chest 1V portable [id number] 05/24/2021 2:27 PM RADIATION DOSE METRICS: Total DLP (mGy-cm): 3053.75 FINDINGS: Lungs: Patchy bilateral airspace infiltrates. Pleural spaces: Unremarkable. No pneumothorax. No pleural effusion. Heart: Unremarkable. No cardiomegaly. No pericardial effusion. Aorta: Unremarkable. No aortic aneurysm. Lymph nodes: Scattered prominent mediastinal lymph nodes measuring up to 8.2 mm short axis, nonspecific. Bones/joints: Unremarkable. No acute fracture. Soft tissues: Unremarkable. PROCEDURE INFORMATION: Exam: CT Abdomen And Pelvis Without Contrast Exam date and time: 05/24/2021 4:31 PM Age: 45 years old Clinical indication: Other: Weakness; Patient HX: Abdominal tenderness w/ abnormal xray. AMS; Additional info: Abnormal xray, abdominal tenderness, altered TECHNIQUE: Imaging protocol: Computed tomography of the abdomen and pelvis without contrast. Radiation optimization: All CT scans at this facility use at least one of these dose optimization techniques: automated exposure control; mA and/or kV adjustment per patient size (includes targeted exams where dose is matched to clinical indication); or iterative reconstruction. COMPARISON: CR XR chest 1V portable [id number] 05/24/2021 2:27 PM RADIATION DOSE METRICS: Total DLP (mGy-cm): 3053.75 FINDINGS: Liver: Normal. No mass. Gallbladder and bile ducts: Normal. No calcified stones. No ductal dilation. Pancreas: Normal. No ductal dilation. Spleen: Normal. No splenomegaly. Adrenal glands: Normal. No mass. Kidneys and ureters: Bilateral punctate nonobstructing renal calyceal stones. Stomach and bowel: Constipation. Appendix: No evidence of appendicitis. Intraperitoneal space: Unremarkable. No free air. No significant fluid collection. Vasculature: Unremarkable. No abdominal aortic aneurysm. Lymph nodes: Unremarkable. No enlarged lymph nodes. Urinary bladder: Enriquez catheter in the urinary bladder with some air presumed iatrogenic. Reproductive: Unremarkable as visualized. Bones/joints: Unremarkable. No acute fracture. Soft tissues: Small left inguinal hernia containing omentum without bowel or inflammation. CT/CT chest abd pel wo con IMPRESSION: 1. Patchy bilateral airspace infiltrates. 2. Scattered prominent mediastinal lymph nodes measuring up to 8.2 mm short axis, nonspecific. IMPRESSION: 1. Negative for focal acute inflammatory process in the abdomen or pelvis. 2. Bilateral punctate nonobstructing renal calyceal stones. 3. Constipation. 4. Enriquez catheter in the urinary bladder with some air presumed iatrogenic. 5. Small left inguinal hernia containing omentum without bowel or inflammation.
[2021-05-24] MEDS: lactated ringers 1,000 ML 999 ML IV (17:11)
[2021-05-24 19:22] LABS: Albumin Level 3.5 g/dL (3.5-5.2); Alkaline Phosphatase 96 IU/L (40-130); Anion Gap 18.4 (5-19); Aspartate Amino Transferase 694 U/L (0-40); Blood Urea Nitrogen 26 mg/dL (6-20); Calcium 7.9 mg/dL (8.5-10.5); Carbon Dioxide 21 mmol/L (22-29); Chloride 108 mmol/L (98-107); Globulin 3.1 g/dL (1.3-4.6); Glomerular Filtration Rate 73.1 mL/min (90-130); Glucose 92 mg/dL (65-115); Osmolality Calculated 300 mOsm/kg (285-295); Potassium 4.4 mmol/L (3.5-5.1); Sodium 143 mmol/L (136-145); Total Bilirubin 0.5 mg/dL (0.15-1.2); Total Protein 6.6 g/dL (6.6-8.7)
[2021-05-24 19:34] LABS: Alanine Aminotransferase 1081 U/L (0-41)
--- NOTE | 2021-05-24 19:35 | CTR_ITS ---
PROCEDURE INFORMATION: Exam: CT Head Without Contrast Exam date and time: 05/24/2021 7:35 PM Age: 45 years old Clinical indication: Altered mental status/memory loss; Additional info: Reeval, 1st CT motion artifact, AMS, TECHNIQUE: Imaging protocol: Computed tomography of the head without contrast. Radiation optimization: All CT scans at this facility use at least one of these dose optimization techniques: automated exposure control; mA and/or kV adjustment per patient size (includes targeted exams where dose is matched to clinical indication); or iterative reconstruction. COMPARISON: CT head wo con* [id number] 05/24/2021 2:30 PM RADIATION DOSE METRICS: Total DLP (mGy-cm): 2068.9 FINDINGS: Brain: Mild diffuse white matter disease likely reflecting chronic microvascular ischemic changes. Cerebral ventricles: No ventriculomegaly. Paranasal sinuses: Mild paranasal sinus mucosal thickening. Mastoid air cells: Right mastoid air cell opacifications may reflect a chronic inflammatory process Bones/joints: Unremarkable. No acute fracture. Soft tissues: Unremarkable. CT/CT head wo con* [id number] IMPRESSION: Negative for intracranial hemorrhage or mass effect
[2021-05-24 19:36] LABS: Creatine Phosphokinase 5778 U/L (39-308)
[2021-05-24] MEDS: lactated ringers 1,000 ML 200 ML IV (19:46)
[2021-05-24] MEDS: calcium chloride 10% Syr 10 mL 1 GM IVP (19:50)
--- NOTE | 2021-05-24 21:27 | P.HP_ITS ---
Providers/Chief Complaint Primary Care Provider: Jason Askew Chief Complaint: AMS, BACK PAIN History of Present Illness Kimo Lee is a 45 year old male with past medical history of chronic low back pain, on methadone 10 mg p.o. 3 times daily, came in with chief complaint of, generalized weakness and confusion progressively worsening over the last 3 days. Patient was moving recently to a different house and was doing a lot of heavy lifting over the last week or so and has been complaining of increasing lower back pain, chest pain ,headache , right arm pain. When I examined the patient he was AO*3, looked very fatigued, history was mostly provided by the according to her yesterday he was in bed all day, with very poor oral intake, when he woke up today in the morning he was extremely confused, had urinated on himself overnight, was not able to stand. During my examination patient was complaining of back pain, he denied any chest pain shortness of breath, headache, pain in extremities. Upon arrival in the ER: He was worked up for above-mentioned complaint: Pertinent imaging studies: CT head without contrast: No acute intracranial pathology CT chest abdomen and pelvis without contrast: Patchy bilateral airspace infiltrates. No acute intra abdominal or pelvic pathology.Small left inguinal hernia containing omentum without bowel or inflammation.Bilateral punctate nonobstructing renal calyceal stones. X-ray chest: Diffuse groundglass infiltrate throughout the left lung. There may be some infiltrate in the upper right lung zone also. Findings suggest pneumonia. Pertinent labs: WBC 14.6, H&H: 14.6/42 , PLT : 279 , serum sodium 143 serum potassium 4.4, BUN / serum creatinine : 26/1.1 , AST: 694, ALT:1081 , ALP: 96 , CRP:178 , Procalcitonin:13.92 , CK: 5778 , Urinalysis clean, COVID-19 PCR negative, coronavirus 229e pcr : Positive U tox: Negative Patient was given IV fluids in the ER, as well as cefepime, LP was attempted in the ER: But could not be done as the patient was not able to position himself. He was also given 1 GM of calcium chloride. Review of Systems Const: Denies: change in appetite or diaphoresis Card: Denies: palpitations, edema, swelling of feet/ankles or leg pain with exertion Resp: Denies: dyspnea, productive cough, wheezing or pain on inspiration GI: Denies: abdominal pain, nausea, vomiting, diarrhea or constipation : Denies: flank pain or difficulty urinating Musc: Denies: extremity pain or extremity swelling Neuro: Denies: headache(s), difficulty walking or confusion Medications/Allergies Home Medications Medication Instructions Recorded Confirmed Last Taken Type carisoprodol 350 mg tablet 350 mg PO BID PRN #60 tab 01/15/21 05/02/21 Unknown Rx methadone 10 mg tablet 10 mg PO Q8H 30 Days #90 tab 05/14/21 Unknown Rx Allergies Allergy/AdvReac Type Severity Reaction Status Date / Time fluoxetine [From Prozac] Allergy unknown Verified 05/02/21 08:42 PFSH Acute PFSH: Medical History (Updated 05/24/21 @ 22:53 by Michele Yang MD) Cervical disc disease Chronic hepatitis C Depression First metacarpal bone fracture Surgical History History of knee surgery Family History Father No problems noted. Mother Dementia Social History Smoking and tobacco status: former smoker Quit status (tobacco): has quit using tobacco Second hand smoke exposure: No Smoking risk assessment/counseling performed?: No Alcohol intake: never Desire information about alcohol rehabilitation?: No Counseling given: No Desire information about substance/drug rehabilitation?: No Counseling given: No Adopted: No Caregiver/support person: No Lives independently: Yes Household members: spouse Housing: House Marital status: Number of children: 1 Highest education level completed: Some College, No Degree service: Yes Current occupational status: disabled History of recent travel: No Vitals/I&O/Wt Last Vital Signs Temp 98.2 F 05/24/21 12:32 Pulse 94 05/24/21 12:32 Resp 16 05/24/21 12:32 BP 169/108 05/24/21 20:30 Pulse Ox 92 05/24/21 20:30 05/24/21 05/24/21 05/24/21 06:59 14:59 22:59 Intake Total 3050 / 3050 Balance 3050 / 3050 Weight last 48 hrs Weight 99.79 kg Physical Exam HENMT: COMMON NORMALS: normocephalic and atraumatic HEAD & SCALP: normocephalic and atraumatic Chest: CHEST: Yes Symmetrical chest wall rise Resp: COMMON NORMALS: clear to auscultation bilaterally EFFORT & INSPECTION: Yes symmetric chest movement AUSCULTATION: clear to auscultation bilaterally Cardio: COMMON NORMALS: regular rate, regular rhythm, S1 normal heart sound present, S2 normal heart sound present, No gallops present (Cardio), No murmurs present (Cardio), No rub (Cardio) and Peripheral pulses 2+ throughout RATE: regular rate RHYTHM: regular rhythm HEART SOUNDS: S1 normal heart sound present and S2 normal heart sound present PERIPHERAL PULSES: Peripheral pulses 2+ throughout GI: COMMON NORMALS: Normal to inspection, nondistended, normoactive bowel sounds present, Soft to palpation, non-tender, No hepatosplenomegaly present and no masses AUSCULTATION: Yes normoactive bowel sounds PALPATION: Yes Soft to palpation and Yes No hepatosplenomegaly present RECTAL EXAM: Yes deferred Extremity: COMMON NORMALS: no clubbing, cyanosis or edema and no pedal edema Urinary Catheter Management^: Enriquez: Cath Placed During This Visit: yes Reason for Continuing Indwelling Catheter: Accurate Measurement of Urinary Output in Critically Ill Patients Urinary Catheter Date of Insertion: 05/24/21 Urinary Catheter Time of Insertion: 14:51 Data : 05/24/21 13:40 05/24/21 18:20 Micro: Microbiology 05/24/21 15:05 Blood Culture - Preliminary Blood SPECIMEN COLLECTED 05/24/21 15:02 Blood Culture - Preliminary Blood SPECIMEN COLLECTED A&P Assessment and plan (1) Acute encephalopathy: Status: Acute (2) Pneumonia: Status: Acute Qualifiers: Laterality: bilateral Lung location: unspecified part of lung Pneumonia type: due to unspecified organism Qualified Code(s): J18.9 - Pneumonia, unspecified organism (3) Rhabdomyolysis: Status: Acute Qualifiers: Rhabdomyolysis type: non-traumatic Qualified Code(s): M62.82 - Rhabdomyolysis (4) Transaminitis: Status: Acute (5) Chronic low back pain: Status: Acute Qualifiers: Back pain laterality: bilateral Sciatica presence: unspecified whether sciatica present Qualified Code(s): M54.50 - Low back pain, unspecified; G89.29 - Other chronic pain (6) Chronic hepatitis C: Status: Acute Additional A&P Information 45 year old male with past medical history of chronic low back pain, on methadone 10 mg p.o. 3 times daily, came in with chief complaint of, generalized weakness and confusion progressively worsening over the last 3 days. #Acute metabolic encephalopathy: Likely secondary to rhabdo, dehydration, pneumonia. Follow blood culture, urine culture.TSH. 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 Continue vancomycin and ceftriaxone. #Pneumonia: COVID-19 PCR is negative. coronavirus 229e pcr : Positive Currently saturating well on room air. Antibiotic as above #Rhabdomyolysis: Continue IV hydration Monitor CPK #Transaminitis: Likely secondary to rhabdomyolysis, patient has history of chr onic hepatitis C. Follow CMP Ultrasound abdomen #History of chronic hepatitis C: No acute intervention #Chronic low back pain: On methadone 10 mg po tid #CODE STATUS: Full code #DVT prophylaxis: On Lovenox. Attestations Medical Necessity Statement*: Patient is to be in hospital for management of a cute encephalopathy, pneumonia. Anticipated length of stay greater than 2 midnight. Time Spent in Patient Care: Greater than 35 minutes (>than 50% of time sp ent in counselling and/or direct pt care on unit) . Coding Level of Care Code Acute Student Services Rep for [facility] Fwd Exam Detailed Diagnoses Acute encephalopathy G93.40 Pneumonia J18.9 Laterality: bilateral Lung location: unspecified part of lung Pneumonia type: due to unspecified organism Rhabdomyolysis M62.82 Rhabdomyolysis type: non-traumatic Transaminitis R74.01 Chronic low back pain M54.50; G89.29 Back pain laterality: bilateral Sciatica presence: unspecified whether sciatica present Chronic hepatitis C B18.2
--- NOTE | 2021-05-24 21:40 | PC.PHAR ---
Vancomycin is dosed at 1gm IVPB every 8 hours to produce a predicted trough level of 15.83 (population based pharmacokinetic analysis). A trough level has been ordered from the lab to be obtained before the fourth dose to confirm and adjust if needed.
[2021-05-24] MEDS: sodium chloride 0.9% 1,000 ML 125 ML IV (21:49)
[2021-05-24] MEDS: cefTRIAXone 2,000 MG in sodium chloride 0.9% (plus) 50 ML 100 MG IV (21:51)
[2021-05-24] MEDS: enoxaparin 40 mg/0.4 mL Syringe SUBCUT (21:54)
[2021-05-24] MEDS: vancomycin 1,000 MG in sodium chloride 0.9% 250 ML 250 MG IV (22:27)
[2021-05-25] VITALS (12 sets, daily range): BP systolic 121–197; BP diastolic 80–103; PULSE 63–84; RESP 14–21; TEMP 36.9–37.3; O2SAT 87–96; BMI 33.5
[2021-05-25 03:13] LABS: Basophils % 0.3 %; Eosinophils % 0.3 %; Hematocrit 40.4 % (42.0-52.0); Hemoglobin 13.6 g/dL (11.7-16.6); Lymphocytes % 16.4 %; Mean Corpuscular HGB Conc 33.7 g/dL (30.0-36.0); Mean Corpuscular Hemoglobin 28.9 pg (28.0-34.0); Mean Platelet Volume 11.1 fL (7.4-10.4); Monocytes # 0.7 10^3/uL (0.2-0.9); Monocytes % 6.2 %; Neutrophils # 9.08 10^3/uL (1.8-7.7); Neutrophils % 76.1 %; Nucleated Red Blood Cells % 0.2 %; Platelet Count 234 10^3/cmm (130-400); Red Cell Distribution Width 14.4 % (12.1-15.1); White Blood Count 11.9 10^3/uL (4.0-10.0)
[2021-05-25 03:38] LABS: Albumin Level 3.5 g/dL (3.5-5.2); Alkaline Phosphatase 105 IU/L (40-130); Aspartate Amino Transferase 462 U/L (0-40); Blood Urea Nitrogen 22 mg/dL (6-20); Calcium 8.4 mg/dL (8.5-10.5); Carbon Dioxide 21 mmol/L (22-29); Chloride 106 mmol/L (98-107); Glomerular Filtration Rate 73.1 mL/min (90-130); Glucose 90 mg/dL (65-115); Magnesium 2.1 mg/dL (1.7-2.3); Osmolality Calculated 295 mOsm/kg (285-295); Sodium 141 mmol/L (136-145); Thyroid Stimulating Hormone 2.58 uIU/mL (0.27-4.20); Total Bilirubin 0.6 mg/dL (0.15-1.2); Total Protein 6.5 g/dL (6.6-8.7)
[2021-05-25 03:42] LABS: Procalcitonin 9.34 ng/mL (0-0.5)
[2021-05-25 03:46] LABS: Slide Review Slide Review Perform
[2021-05-25 03:50] LABS: Alanine Aminotransferase 961 U/L (0-41)
[2021-05-25 04:01] LABS: Creatine Phosphokinase 3986 U/L (39-308)
[2021-05-25] MEDS: vancomycin 1,000 MG in sodium chloride 0.9% 250 ML 250 MG IV ×2 (06:00→14:58)
[2021-05-25] MEDS: sodium chloride 0.9% 1,000 ML 125 ML IV (06:01)
[2021-05-25] MEDS: cefTRIAXone 2,000 MG in sodium chloride 0.9% (plus) 50 ML 100 MG IV ×2 (10:03→20:34)
[2021-05-25] MEDS: methadone 10 mg Tablet PO ×3 (11:55→20:27)
--- NOTE | 2021-05-25 13:58 | PC.CHAP ---
Pastoral Care Encounter/Spiritual Assessment Type of Contact [] Declined wagon winder visit [] Patient/Family/Request visit [] Outpatient visit [] Follow-up visit [] Physician referral [] Code/Alert [] Routine visit [] Staff referral [] Actively dying [] Patient sleeping [] Family support [] [] Out of room [] Palliative care [] [] Receiving care in room [] Pre-surgical visit [] Trauma [] Long length of stay [] ICU visit [xx] Other: Quarantine Relational/Emotional Strength [] Patient feels connected with others/family/visitors/staff [] Distress [] Loneliness/isolation [] Abandonment Spirituality of Patient [] Person of Shefali [] Attends Cheondoism of their Shefali [] Believes in Prayer [] Reads Bible or Temple materials [] There are Spiritual issues to be addressed Is Support Analyst Interventions [] Prayer [] Active listening [] Non-anxious presence [] Spiritual/emotional support [] Crisis/trauma care [] Spiritual counseling [] Bereavement support [] Provided bereavement packet [] Provided Bible/devotional materials [] Provided toy/stuffed animal, coloring book to patient or family member [] Provided Communion [] Anointing/Wasta [] Salvation [] Completed spiritual assessment [] Other: Impact on Illness or Injury [] Angry [] Fearful [] Anxious [] Often cries [] Exhaustion [] Unable to work [] Unable to attend temple [] Unable to walk/stand [] Unable to read [] Unable to drive [] Unable to eat/drink [] Unable to sleep [] Unable to be with family [] Patient intubated [] Other: Summary Time spent with patient
--- NOTE | 2021-05-25 19:48 | PC.NURSE ---
IV lost after vancomycin was completed infiltration with flush WAS unable to establish IV access before transfer to med/surg Sotrovimob 4 hr delayed on administration due to no iv
--- NOTE | 2021-05-25 20:23 | P.PN_ITS ---
Subjective Subjective: Interval history: Reports he is feeling better. General body ache better. He is less confused. Denies chest pain or pressure. Denies cough or shortness of breath. Family in the room. Discussed risk of infection. Discussed usual isolation precautions with RICARDA-Roya, would not recommend family staying due to risk of infection, family normally not allowed. Due to his confusion, encephalopathy family requesting to stay with him, verbalized understanding of risk of in fection and illness. Discussed need of PPE. Vitals/I&O/Wt Last Vital Signs Temp 98.5 F 05/25/21 04:01 Pulse 63 05/25/21 12:00 Resp 20 H 05/25/21 11:55 BP 130/86 05/25/21 12:00 Pulse Ox 87 L 05/25/21 11:00 05/25/21 05/25/21 05/25/21 06:59 14:59 22:59 Intake Total 1250 / 4763.333 1275.417 / 1275.417 250 / 1525.417 Balance 1250 / 4763.333 1275.417 / 1275.417 250 / 1525.417 Weight last 48 hrs Weight 112.309 kg Weight 99.79 kg Physical Exam Const: COMMON NORMALS: no acute distress and patient oriented x3 GENERAL APPEARANCE: cooperative NUTRITIONAL APPEARANCE: obese HENMT: COMMON NORMALS: oropharynx normal Neck/C-Spine: COMMON NORMALS: no JVD OTHER: Swelling of right side of the neck with infiltrated EJ IV Resp: COMMON NORMALS: normal respiratory effort and clear to auscultation bilaterally AUSCULTATION: clear to auscultation bilaterally Cardio: COMMON NORMALS: no JVD, regular rhythm, S1 normal heart sound present, S2 normal heart sound present and No murmurs present (Cardio) RHYTHM: regular rhythm HEART SOUNDS: S1 normal heart sound present and S2 normal heart sound present GI: COMMON NORMALS: Normal to inspection, nondistended, normoactive bowel sounds present, Soft to palpation and non-tender PALPATION: Yes Soft to pa lpation Extremity: COMMON NORMALS: no joint enlargement and no pedal edema Neuro: COMMON NORMALS: patient oriented x3 and moves all extremities Skin: COMMON NORMALS: no rashes or lesions noted GENERAL SKIN EXAM: no rashes or lesions noted Urinary Catheter Management^: Enriquez: Cath Placed During This Visit: yes Reason for Continuing Indwelling Catheter: Accurate Measurement of Urinary Output in Critically Ill Patients Urinary Catheter Date of Insertion: 05/24/21 Urinary Catheter Time of Insertion: 14:51 Data : 05/25/21 02:40 05/25/21 02:40 Micro: Microbiology 05/24/21 15:05 Blood Culture - Preliminary Blood NEGATIVE TO DATE 05/24/21 15:02 Blood Culture - Preliminary Blood NEGATIVE TO DATE 05/25/21 07:30 MRSA Culture - Final Nose A&P Assessment and plan (1) Acute encephalopathy: Gradually improving. Still somewhat sluggish responses, but somnolent. Less confused as reported by family. Check ammonia level. Status: Acute (2) Pneumonia: Discussed with him and family COVID-19 pneumonia. Due to BMI at risk of severe illness, with noted saturation 87%, but noted this was during that time he was sleeping with suspected sleep apnea. He is otherwise saturating well in the 90s while awake. Discussed consideration of monoclonal antibody infusion due to risk of severe illness with which they would want to proceed. Status: Acute Qualifiers: Laterality: bilateral Lung location: unspecified part of lung Pneumonia type: due to unspecified organism Qualified Code(s): J18.9 - Pneumonia, unspecified organism (3) Rhabdomyolysis: Improving. Stopped IVF. Status: Acute Qualifiers: Rhabdomyolysis type: non-traumatic Qualified Code(s): M62.82 - Rhabdomyolysis (4) Transaminitis: Normal gallbladder. Decreased attenuation throughout the liver with possible hepatocellular disease such as cirrhosis or hepatic steatosis. Status: Acute (5) Chronic low back pain: Status: Acute Qualifiers: Back pain laterality: bilateral Sciatica presence: unspecified whether sciatica present Qualified Code(s): M54.50 - Low back pain, unspecified; G89.29 - Other chronic pain (6) Chronic hepatitis C: Decreased attenuation throughout the liver with possible hepatocellular disease such as cirrhosis or hepatic steatosis on US. Status: Acute Attestations Medical Necessity Statement*: Continue admission for assessment and management off acute encephalopathy, COVID-19 with risk of severe disease, improving rhabdomyolysis. Coding Level of Care Code Acute System Administration Manager for [facility] Rasheeda Diagnoses Acute encephalopathy G93.40 Pneumonia J18.9 Laterality: bilateral Lung location: unspecified part of lung Pneumonia type: due to unspecified organism Rhabdomyolysis M62.82 Rhabdomyolysis type: non-traumatic Transaminitis R74.01 Chronic low back pain M54.50; G89.29 Back pain laterality: bilateral Sciatica presence: unspecified whether sciatica present Chronic hepatitis C B18.2
[2021-05-25] MEDS: enoxaparin 40 mg/0.4 mL Syringe SUBCUT (20:28)
--- NOTE | 2021-05-25 22:52 | US_ITS ---
WS: [id number] RIGHT UPPER QUADRANT ULTRASOUND HISTORY: Transaminitis COMPARISON: 04/21/2019, CT 05/24/2021 Liver: 13.6 cm in length. Normal size liver. Mild decreased attenuation and coarse echotexture throug hout the liver. No mass identified. No bile duct dilatation. Portal Vein: Normal hepatopetal flow with monophasic waveform. Gallbladder: Normally distended gallbladder with no stones or wall thickening. CBD: 0.6 cm Pancreas: Not well visualized. Right kidney: 10.0 cm in length. Normal size and echogenicity. No hydronephrosis or mass. Aorta and IVC: Unremarkable abdominal aorta and IVC. No ascites. US/US abdomen limited 89012 IMPRESSION: 1. Negative gallbladder. 2. No bile duct dilatation. 3. Decreased attenuation throughout the liver. Consider hepatocellular disease such as cirrhosis or hepatic steatosis.
[2021-05-26] VITALS (10 sets, daily range): BP systolic 126–185; BP diastolic 73–103; PULSE 57–81; RESP 15–22; TEMP 36.3–37.6; O2SAT 90–94
[2021-05-26 02:51] LABS: Vancomycin Trough 11.6 ug/mL (10-15)
[2021-05-26] MEDS: vancomycin 1,000 MG in sodium chloride 0.9% 250 ML 250 MG IV (03:30)
[2021-05-26] MEDS: acetaminophen 325 mg Tablet 650 MG PO (03:36)
[2021-05-26 05:14] LABS: Basophils % 0.4 %; Eosinophils # 0.1 10^3/uL (0.0-0.8); Eosinophils % 0.5 %; Hematocrit 39.9 % (42.0-52.0); Hemoglobin 13.4 g/dL (11.7-16.6); Lymphocytes # 2.2 10^3/uL (0.8-4.8); Lymphocytes % 19.8 %; Mean Corpuscular HGB Conc 33.6 g/dL (30.0-36.0); Mean Corpuscular Hemoglobin 28.6 pg (28.0-34.0); Mean Corpuscular Volume 85.3 fl (80-94); Mean Platelet Volume 9.8 fL (7.4-10.4); Monocytes # 0.9 10^3/uL (0.2-0.9); Monocytes % 8.4 %; Neutrophils # 7.83 10^3/uL (1.8-7.7); Neutrophils % 69.9 %; Nucleated Red Blood Cells % 0.2 %; Platelet Count 238 10^3/cmm (130-400); Red Blood Count 4.68 10^6/uL (4.1-5.3); Red Cell Distribution Width 14.1 % (12.1-15.1); White Blood Count 11.2 10^3/uL (4.0-10.0)
[2021-05-26 05:34] LABS: Alanine Aminotransferase 543 U/L (0-41); Albumin Level 3.5 g/dL (3.5-5.2); Alkaline Phosphatase 102 IU/L (40-130); Aspartate Amino Transferase 134 U/L (0-40); Blood Urea Nitrogen 15 mg/dL (6-20); Calcium 8.9 mg/dL (8.5-10.5); Carbon Dioxide 20 mmol/L (22-29); Chloride 104 mmol/L (98-107); Glomerular Filtration Rate 92.1 mL/min (90-130); Glucose 93 mg/dL (65-115); Osmolality Calculated 287 mOsm/kg (285-295); Sodium 138 mmol/L (136-145); Total Bilirubin 0.5 mg/dL (0.15-1.2); Total Protein 6.5 g/dL (6.6-8.7)
[2021-05-26 05:35] LABS: Ammonia 28 umol/L (16-60)
[2021-05-26 05:39] LABS: Procalcitonin 3.55 ng/mL (0-0.5)
[2021-05-26 05:40] LABS: Anion Gap 17.9 (5-19); Potassium 3.9 mmol/L (3.5-5.1)
[2021-05-26 05:41] LABS: Creatine Phosphokinase 1206 U/L (39-308)
[2021-05-26] MEDS: methadone 10 mg Tablet PO ×3 (09:02→20:45)
[2021-05-26] MEDS: vancomycin 1,250 MG/250 ML PIGGYBACK 250 MG IV (09:02)
--- NOTE | 2021-05-26 12:23 | PM.PN ---
Subjective Subjective: Interval history: He reports he is feeling better. He is not in pain or distress apart from his back bothering him from staying in bed. Reports chronic back problems. Appears mental status has been returning to his usual. However, he has not gotten up at all from bed. We discussed consideration of discharge home, if he is able to get up and move around with minimal assistance. However it to 2 people assist for him to get out of bed and to the commode and back. Vitals/I&O/Wt Last Vital Signs Temp 98.1 F 05/26/21 09:09 Pulse 68 05/26/21 09:09 Resp 15 05/26/21 09:09 BP 164/93 05/26/21 09:09 Pulse Ox 94 05/26/21 09:09 05/25/21 05/26/21 05/26/21 22:59 06:59 14:59 Intake Total 1210 / 2485.417 358 / 2843.417 250 / 250 Output Total 1800 / 1800 1000 / 2800 Balance -590 / 685.417 -642 / 43.417 250 / 250 Weight last 48 hrs Weight 112.309 kg Weight 99.79 kg Physical Exam Const: COMMON NORMALS: no acute distress and patient oriented x3 GENERAL APPEARANCE: cooperative NUTRITIONAL APPEARANCE: obese HENMT: COMMON NORMALS: oropharynx normal Neck/C-Spine: COMMON NORMALS: no JVD OTHER: Swelling of right side of the neck with infiltrated EJ IV improving Resp: COMMON NORMALS: normal respiratory effort and clear to auscultation bilaterally AUSCULTATION: clear to auscultation bilaterally Cardio: COMMON NORMALS: no JVD, regular rhythm, S1 normal heart sound present, S2 normal heart sound present and No murmurs present (Cardio) RHYTHM: regular rhythm HEART SOUNDS: S1 normal heart sound present and S2 normal heart sound present GI: COMMON NORMALS: Normal to inspection, nondistended, normoactive bowel sounds present, Soft to palpation and non-tender PALPATION: Yes Soft to palpation Extremity: COMMON NORMALS: no joint enlargement and no pedal edema Neuro: COMMON NORMALS: patient oriented x3 and moves all extremities Skin: COMMON NORMALS: no rashes or lesions noted GENERAL SKIN EXAM: no rashes or lesions noted Urinary Catheter Management^: Enriquez: Cath Placed During This Visit: yes Reason for Continuing Indwelling Catheter: Acute Urinary Retention or Obstruction Urinary Catheter Date of Insertion: 05/24/21 Urinary Catheter Time of Insertion: 14:51 Data : 05/26/21 05:00 05/26/21 05:00 Micro: Microbiology 05/24/21 15:05 Blood Culture - Preliminary Blood NEGATIVE TO DATE 05/24/21 15:02 Blood Culture - Preliminary Blood NEGATIVE TO DATE 05/25/21 07:30 MRSA Culture - Final Nose A&P Assessment and plan (1) Acute encephalopathy: Encephalopathy resolving, however, has not been out of bed, we discussed consideration of going home, however, on getting up requiring 2 people assist to get to the bedside commode and back. Very weak. Will obtain PT, OT evaluation. Ammonia level checked, normal. Status: Acute (2) Pneumonia: He is doing well in terms of oxygenation. Received monoclonal antibody infusion. Not requiring oxygen support. Continue to monitor. Possibly moderate COVID-19 contributing to generalized weakness. Lost his IV. Transition antibiotics to oral. Status: Acute Qualifiers: Laterality: bilateral Lung location: unspecified part of lung Pneumonia type: due to unspecified organism Qualified Code(s): J18.9 - Pneumonia, unspecified organism (3) Rhabdomyolysis: Continues to improve, CK down to 1200. Stopped IVF. Status: Acute Qualifiers: Rhabdomyolysis type: non-traumatic Qualified Code(s): M62.82 - Rhabdomyolysis (4) Transaminitis: Normal gallbladder. Decreased attenuation throughout the liver with possible hepatocellular disease such as cirrhosis or hepatic steatosis. Will need follow-up. Status: Acute (5) Chronic low back pain: Status: Acute Qualifiers: Back pain laterality: bilateral Sciatica presence: unspecified whether sciatica present Qualified Code(s): M54.50 - Low back pain, unspecified; G89.29 - Other chronic pain (6) Chronic hepatitis C: Decreased attenuation throughout the liver with possible hepatocellular disease such as cirrhosis or hepatic steatosis on US. Status: Acute Attestations Medical Necessity Statement*: Continue admission for assessment management of improving encephalopathy, generalized weakness, improving rhabdomyolysis, moderate COVID-19 Coding Level of Care Code Acute Biology Department Chair for [facility] Fwd Exam Comprehensive Diagnoses Acute encephalopathy G93.40 Pneumonia J18.9 Laterality: bilateral Lung location: unspecified part of lung Pneumonia type: due to unspecified organism Rhabdomyolysis M62.82 Rhabdomyolysis type: non-traumatic Transaminitis R74.01 Chronic low back pain M54.50; G89.29 Back pain laterality: bilateral Sciatica presence: unspecified whether sciatica present Chronic hepatitis C B18.2
[2021-05-26 16:15] LABS: Rapid Plasma Reagin Syphilis Nonreactive (Nonreactive)
[2021-05-26 16:34] LABS: Vitamin B12 1194 pg/mL (232-1245)
[2021-05-26 17:00] LABS: Folate Level 19.8 ng/mL (4.5-32.2)
[2021-05-26] MEDS: terbinafine 1% Cream 15 gm 1 APPLIC TOPICAL (17:07)
[2021-05-26] MEDS: doxycycline 100 mg Tablet PO (17:08)
[2021-05-26] MEDS: cefdinir 300 MG CAPSULE PO (17:08)
--- NOTE | 2021-05-26 18:52 | PC.NURSE ---
Dr. Castañeda okayed for patient to not have an IV
[2021-05-26] MEDS: enoxaparin 40 mg/0.4 mL Syringe SUBCUT (20:45)
[2021-05-27] VITALS (8 sets, daily range): BP systolic 129–157; BP diastolic 65–102; PULSE 61–104; RESP 16–18; TEMP 36.3–37.1; O2SAT 93–96
--- NOTE | 2021-05-27 07:57 | PC.NURSE ---
patient has rash on chest and arms. i reported this to the nurse
[2021-05-27] MEDS: methadone 10 mg Tablet PO ×3 (09:30→22:23)
[2021-05-27] MEDS: doxycycline 100 mg Tablet PO ×2 (09:30→18:04)
[2021-05-27] MEDS: terbinafine 1% Cream 15 gm 1 APPLIC TOPICAL ×2 (09:30→18:07)
[2021-05-27] MEDS: cefdinir 300 MG CAPSULE PO ×2 (09:30→18:04)
--- NOTE | 2021-05-27 19:22 | PC.NURSE ---
i reported low temp 97.3 to nurse
--- NOTE | 2021-05-27 20:37 | P.PN_ITS ---
Subjective Subjective: Interval history: He feels better. He did not try to get up after PT assessment yesterday. His significant other feels his mental status continues to clear up. They are able to have near normal conversations now. He is still feeling jittery/shifting around which he attributes to being not entirely comfortable in bed, but his significant other states he is not normally like this. Vitals/I&O/Wt Last Vital Signs Temp 97.3 F L 05/27/21 19:21 Pulse 61 05/27/21 20:05 Resp 18 05/27/21 19:21 BP 154/102 05/27/21 19:21 Pulse Ox 93 05/27/21 19:21 05/27/21 05/27/21 05/27/21 06:59 14:59 22:59 Intake Total 480 / 480 Output Total 1200 / 1200 1570 / 1570 Balance -1200 / 550 -1090 / -1090 Physical Exam Const: COMMON NORMALS: no acute distress and patient oriented x3 GENERAL APPEARANCE: cooperative NUTRITIONAL APPEARANCE: obese HENMT: COMMON NORMALS: oropharynx normal Neck/C-Spine: COMMON NORMALS: no JVD OTHER: Swelling of right side of the neck with infiltrated EJ IV improving Resp: COMMON NORMALS: normal respiratory effort and clear to auscultation bilaterally AUSCULTATION: clear to auscultation bilaterally Cardio: COMMON NORMALS: no JVD, regular rhythm, S1 normal heart sound present, S2 normal heart sound present and No murmurs present (Cardio) RHYTHM: regular rhythm HEART SOUNDS: S1 normal heart sound present and S2 normal heart sound present GI: COMMON NORMALS: Normal to inspection, nondistended, normoactive bowel sounds present, Soft to palpation and non-tender PALPATION: Yes Soft to palpation Extremity: COMMON NORMALS: no joint enlargement and no pedal edema Neuro: COMMON NORMALS: patient oriented x3 and moves all extremities Skin: COMMON NORMALS: no rashes or lesions noted GENERAL SKIN EXAM: no rashes or lesions noted Urinary Catheter Management^: Enriquez: Cath Placed During This Visit: yes Reason for Continuing Indwelling Catheter: Acute Urinary Retention or Obstruction Urinary Catheter Date of Insertion: 05/24/21 Urinary Catheter Time of Insertion: 14:51 Data : 05/26/21 05:00 05/26/21 05:00 A&P Assessment and plan (1) Acute encephalopathy: Acute metabolic encephalopathy, possibly infection related secondary to COVID also. Encephalopathy is clearing up, his mental status improving, although he is still jittery, moving about in bed, although less so than yesterday. He is more interactive. Able to provide more history. He is weak, however, and yesterday had trouble getting up with physical therapy. Difficulties with coordination, yesterday had trouble with dysmetria, ataxia. Not clear reason for this, although suspected rhabdomyolysis and metabolic encephalopathy as causes. Does not appear to have focal exam today. No significant lower back pain or symptoms of radiculopathy. No loss of sensation or sensory level. No sensory neglect. Some ataxia noted on [id number] bilaterally slightly worse on the right. Minimal if any dysmetria today in upper extremities. No vertigo/nystagmus. Visual loco intact confrontation. At this time as he is improving continue supportive care, reassess again with physical therapy. If not improving, consider additional imaging, possibly neurology consultation. GBS would be consideration, although again with lack of signs or symptoms, rapid improvement and constellation of other symptoms perhaps less likely. COVID myopathy or other myopathy a possibility. Cerebellar CVA not entirely excluded another possibility given noted lacunar CVA incidentally seen on head CT. Given symptoms appear to be persistent today we will request MRI brain for tomorrow. Depending on condition tomorrow consider LP. Hold off ASA until after need for LP excluded. Encephalopathy resolving, however, has not been out of bed, we discussed consideration of going home, however, on getting up requiring 2 people assist to get to the bedside commode and back. Very weak. Leaning to the left. Ammonia level checked, normal. TSH normal. Status: Acute (2) Pneumonia: Doing well on room air. Received monoclonal antibody infusion. Not requiring oxygen support. Continue to monitor. Possibly moderate COVID-19 contributing to generalized weakness. Lost his IV. Transitioned antibiotics to oral. Status: Acute Qualifiers: Laterality: bilateral Lung location: unspecified part of lung Pneumonia type: due to unspecified organism Qualified Code(s): J18.9 - Pneumonia, unspecified organism (3) Rhabdomyolysis: Has been resolving. CK down to 1200. Stopped IVF. Status: Acute Qualifiers: Rhabdomyolysis type: non-traumatic Qualified Code(s): M62.82 - Rhabdomyolysis (4) Transaminitis: Normal gallbladder. Decreased attenuation throughout the liver with possible hepatocellular disease such as cirrhosis or hepatic steatosis. Will need follow-up. Status: Acute (5) Chronic low back pain: Status: Acute Qualifiers: Back pain laterality: bilateral Sciatica presence: unspecified whether sciatica present Qualified Code(s): M54.50 - Low back pain, unspecified; G89.29 - Other chronic pain (6) Chronic hepatitis C: Decreased attenuation throughout the liver with possible hepatocellular disease such as cirrhosis or hepatic steatosis on US. Status: Acute Additional A&P Information Apnea while sleeping: Noted desaturations with sleep. Refer for sleep study after discharge. Overnight pulse ox. Attestations Medical Necessity Statement*: Continue admission for additional assessment of a symmetric weakness, ataxia which are new. 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
[2021-05-27] MEDS: diphenhydrAMINE 50 mg Capsule 25 MG PO (22:22)
[2021-05-27] MEDS: enoxaparin 40 mg/0.4 mL Syringe SUBCUT (22:24)
[2021-05-28] VITALS (11 sets, daily range): BP systolic 137–172; BP diastolic 77–98; PULSE 65–83; RESP 14–18; TEMP 36.4–36.5; O2SAT 92–97
[2021-05-28] MEDS: methadone 10 mg Tablet PO ×3 (09:35→21:07)
[2021-05-28] MEDS: cefdinir 300 MG CAPSULE PO ×2 (09:35→19:11)
[2021-05-28] MEDS: doxycycline 100 mg Tablet PO ×2 (09:35→19:10)
[2021-05-28] MEDS: terbinafine 1% Cream 15 gm 1 APPLIC TOPICAL ×2 (09:35→19:11)
--- NOTE | 2021-05-28 10:30 | MRR_ITS ---
PROCEDURE INFORMATION: Exam: MR Head Without Contrast Exam date and time: 05/28/2021 10:30 AM Age: 45 years old Clinical indication: Altered mental status/memory loss; Additional info: Possible CVA TECHNIQUE: Imaging protocol: MR of the head without contrast. COMPARISON: CT head wo con* [id number] 05/24/2021 8:10 PM FINDINGS: Brain: There are multiple small areas of acute infarction bilaterally including the left basal ganglia/globus pallidus, parenchyma adjacent to the posterior horn right lateral ventricle, left occipital lobe and bilateral frontal frontal lobes/centrum semiovale. Each of the areas of infarction measure about 7-10 mm in size with the most numerous involvement of the deep white matter of both frontal lobes. There is no transcortical edema or mass effect. No midline shift. Cerebral ventricles: Normal. No ventriculomegaly. Bones/joints: Unremarkable. Paranasal sinuses: There is complete opacification of the right sphenoid air cells and mild mucosal thickening in the ethmoidal air cells. Mastoid air cells: There is near complete opacification of the right mastoid air cells and small left mastoid effusion. Orbital cavity: Unremarkable. Soft tissues: Unremarkable. Other findings: There is mild volume loss. No acute hemorrhage. MR/MR head wo con* [id number] IMPRESSION: 1. 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 No midline shift hemorrhage or mass effect. 2. There is near complete opacification of the right mastoid air cells and small left mastoid effusion.
[2021-05-28 14:27] LABS: Basophils % 0.4 %; Eosinophils # 0.2 10^3/uL (0.0-0.8); Eosinophils % 2.1 %; Hematocrit 43.1 % (42.0-52.0); Hemoglobin 15.5 g/dL (11.7-16.6); Lymphocytes # 2.2 10^3/uL (0.8-4.8); Lymphocytes % 20.6 %; Mean Corpuscular Hemoglobin 29.4 pg (28.0-34.0); Mean Corpuscular Volume 81.8 fl (80-94); Mean Platelet Volume 10.1 fL (7.4-10.4); Monocytes # 0.8 10^3/uL (0.2-0.9); Monocytes % 7.4 %; Neutrophils # 7.31 10^3/uL (1.8-7.7); Neutrophils % 68.1 %; Nucleated Red Blood Cells % 0 %; Platelet Count 280 10^3/cmm (130-400); Red Blood Count 5.27 10^6/uL (4.1-5.3); Red Cell Distribution Width 14.2 % (12.1-15.1); White Blood Count 10.7 10^3/uL (4.0-10.0)
[2021-05-28 14:30] LABS: D Dimer 4.92 ug/mIFEU (0-0.59)
[2021-05-28 14:32] LABS: Alanine Aminotransferase 224 U/L (0-41); Albumin Level 3.8 g/dL (3.5-5.2); Alkaline Phosphatase 100 IU/L (40-130); Blood Urea Nitrogen 17 mg/dL (6-20); Calcium 9.4 mg/dL (8.5-10.5); Carbon Dioxide 17 mmol/L (22-29); Chloride 105 mmol/L (98-107); Globulin 3.6 g/dL (1.3-4.6); Glomerular Filtration Rate 123.1 mL/min (90-130); Glucose 87 mg/dL (65-115); Osmolality Calculated 285 mOsm/kg (285-295); Sodium 137 mmol/L (136-145); Total Bilirubin 0.4 mg/dL (0.15-1.2); Total Protein 7.4 g/dL (6.6-8.7)
[2021-05-28 14:33] LABS: Anion Gap 19.5 (5-19); Aspartate Amino Transferase 41 U/L (0-40); Potassium 4.5 mmol/L (3.5-5.1)
--- NOTE | 2021-05-28 14:33 | PC.OT ---
PATIENT SHOWERED INDEPENDENTLY WITH STANDING BY FOR SAFETY. PATIENT HAS MET ALL OT GOALS. NO FURTHER SKILLED OT REQUIRED.
[2021-05-28 14:41] LABS: NT Pro B Type Natriuretic Pept 165 pg/mL (0-125); Procalcitonin 0.76 ng/mL (0-0.5)
[2021-05-28 14:42] LABS: Thyroid Stimulating Hormone 0.98 uIU/mL (0.27-4.20)
[2021-05-28 14:53] LABS: Iron 28 ug/dL (59-158)
[2021-05-28 14:54] LABS: Percent Saturation 9.9 % (20-50); Total Iron Binding Capacity 282 mcg/dl; Unsaturated Iron Binding 254 ug/dL (112-347)
[2021-05-28] MEDS: benzonatate 100 mg Capsule PO ×2 (17:13→21:07)
--- NOTE | 2021-05-28 17:37 | P.PN_ITS ---
Subjective Subjective: Interval history: Hospital course, labs appreciated. On examination patient working with physical therapy with at bedside. Patient is awake and alert is almost back to baseline. Patient remains on room air hemodynamically stable. Currently saturating 96%. Vitals/I&O/Wt Last Vital Signs Temp 97.6 F 05/28/21 04:00 Pulse 72 05/28/21 16:00 Resp 14 05/28/21 17:13 BP 137/88 05/28/21 16:00 Pulse Ox 96 05/28/21 17:13 05/28/21 05/28/21 05/28/21 06:59 14:59 22:59 Intake Total 120 / 120 Output Total 900 / 900 Balance -780 / -780 Physical Exam Urinary Catheter Management^: Enriquez: Cath Placed During This Visit: yes Reason for Continuing Indwelling Catheter: Acute Urinary Retention or Obstruction Urinary Catheter Date of Insertion: 05/24/21 Urinary Catheter Time of Insertion: 14:51 Data : 05/28/21 13:40 05/28/21 13:40 A&P Assessment and plan (1) Acute encephalopathy: Unknown etiology. Resolving. Could be secondary to dehydration and rhabdomyolysis in setting of coronavirus. Cannot rule out infective pathology. On admission LP could not be done for unknown reasons. Physical therapy evaluation appreciated. CT head is concerning for an old lacunar infarct. Ammonia level on admission and TSH level admission within normal limits. RPR negative. Check vitamin B12, folate. Could be secondary to methadone in setting of liver dysfunction and JOSH from dehydration. MRI brain to rule out posterior circulation strokes. Could be GBS in setting of coronavirus infection though seems to be improving as per physical therapy evaluation. Cannot rule out viral myopathy versus polymyositis given elevated CPK levels on admission as well. Status: Acute (2) Pneumonia: Doing well on room air. Received monoclonal antibody infusion. Not requiring oxygen support. Continue to monitor. Continue with oral cefdinir and doxycycline to finish a 5-day course. Check procalcitonin. Status: Acute Qualifiers: Laterality: bilateral Lung location: unspecified part of lung Pneumo saeid type: due to unspecified organism Qualified Code(s): J18.9 - Pneumonia, unspecified organism (3) Rhabdomyolysis: Has been resolving. CK down to 1200. AV fluid to 75 cc/h. Repeat CPK tomorrow morning. Status: Acute Qualifiers: Rhabdomyolysis type: non-traumatic Qualified Code(s): M62.82 - Rhabdomyolysis (4) Other coronavirus as the cause of diseases classified elsewhere: COVID-19 PCR 229 ED positive, SARS-CoV-2 negative. Discussed with pathology. Coronavirus infection other than COVID-19. Remove isolation precautions. Status: Acute (5) Transaminitis: Normal gallbladder. Decreased attenuation throughout the liver with possible hepatocellular disease such as cirrhosis or hepatic steatosis. Will need follow-up. Status: Acute (6) Chronic low back pain: Status: Acute Qualifiers: Back pain laterality: bilateral Sciatica presence: unspecified whether sciatica present Qualified Code(s): M54.50 - Low back pain, unspecified; G89.29 - Other chronic pain (7) Chronic hepatitis C: Decreased attenuation throughout the liver with possible hepatocellular disease such as cirrhosis or hepatic steatosis on US. Status: Acute Additional A&P Information Apnea while sleeping: Noted desaturations with sleep. Refer for sleep study after discharge. Overnight pulse ox. Full code. Regular diet. Lovenox for DVT prophylaxis. Famotidine for PUD prophylaxis. Discharge planning: Plan to discharge home with home exercise program versus SNF depending on patient's improvement within next few days. Case management has been alerted. Discussed with patient's given need for exercise program versus physical therapy as an outpatient given failure weakness Attestations Medical Necessity Statement*: Requires further hospitalization for management of acute metabolic encephalopathy which is resolving, rhabdomyolysis, physical deconditioning while safe discharge planning is sought. Time Spent in Patient Care: Greater than 35 minutes (>than 50% of time spent in counselling and/or direct pt care on unit) . 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
[2021-05-28] MEDS: sodium chloride 0.9% 1,000 ML 75 ML IV (19:11)
[2021-05-28] MEDS: ferrous gluconate 324 mg Tablet PO (21:07)
[2021-05-28] MEDS: enoxaparin 40 mg/0.4 mL Syringe SUBCUT (21:07)
--- NOTE | 2021-05-28 21:52 | PC.NURSE ---
i reported low temp 97.5 to nurse
[2021-05-29] VITALS (8 sets, daily range): BP systolic 110–162; BP diastolic 75–80; PULSE 63–80; RESP 16–18; TEMP 36.4–36.7; O2SAT 95–97
--- NOTE | 2021-05-29 06:00 | XR_ITS ---
WS: [id number] PORTABLE CHEST HISTORY: covid COMPARISON: 05/24/2021 Mild elevation of the RIGHT hemidiaphragm. There is been slight improvement in the overall aeration since the prior study. Less haziness and les s opacifications throughout both lungs. No pleural effusion or pneumothorax. Cardiac size: Normal. Mediastinum/Aorta: Normal mediastinum. No osseous abnormality seen. XR/XR chest 1V portable [id number] IMPRESSION: Overall mild improvement in aeration bilaterally. Improving areas of hazy opaci fication.
[2021-05-29] MEDS: ferrous gluconate 324 mg Tablet PO (06:28)
[2021-05-29] MEDS: sodium chloride 0.9% 1,000 ML 75 ML IV (07:07)
[2021-05-29 07:48] LABS: Basophils # 0.1 10^3/uL (0.0-0.1); Basophils % 0.5 %; Eosinophils # 0.3 10^3/uL (0.0-0.8); Eosinophils % 3.6 %; Hematocrit 41.6 % (42.0-52.0); Hemoglobin 14.5 g/dL (11.7-16.6); Lymphocytes # 2.9 10^3/uL (0.8-4.8); Lymphocytes % 30.9 %; Mean Corpuscular HGB Conc 34.9 g/dL (30.0-36.0); Mean Corpuscular Hemoglobin 28.9 pg (28.0-34.0); Mean Platelet Volume 9.6 fL (7.4-10.4); Monocytes # 0.9 10^3/uL (0.2-0.9); Monocytes % 9.7 %; Neutrophils # 5.08 10^3/uL (1.8-7.7); Neutrophils % 53.7 %; Nucleated Red Blood Cells % 0 %; Platelet Count 287 10^3/cmm (130-400); Red Blood Count 5.01 10^6/uL (4.1-5.3); Red Cell Distribution Width 14.4 % (12.1-15.1); White Blood Count 9.5 10^3/uL (4.0-10.0)
[2021-05-29 08:07] LABS: Alanine Aminotransferase 156 U/L (0-41); Albumin Level 3.8 g/dL (3.5-5.2); Alkaline Phosphatase 96 IU/L (40-130); Anion Gap 15.8 (5-19); Aspartate Amino Transferase 26 U/L (0-40); Blood Urea Nitrogen 17 mg/dL (6-20); Calcium 8.5 mg/dL (8.5-10.5); Carbon Dioxide 22 mmol/L (22-29); Chloride 102 mmol/L (98-107); Chol HDL Ratio 7.21 mg/dL (1.0-5.00); Cholesterol 202 mg/dL (0-200); Globulin 3.1 g/dL (1.3-4.6); Glomerular Filtration Rate 105.5 mL/min (90-130); Glucose 98 mg/dL (65-115); HDL Cholesterol 28 mg/dL (60-100); LDL Cholesterol Calculated 123 mg/dL (50-129); Osmolality Calculated 284 mOsm/kg (285-295); Potassium 3.8 mmol/L (3.5-5.1); Sodium 136 mmol/L (136-145); Total Bilirubin 0.6 mg/dL (0.15-1.2); Total Protein 6.9 g/dL (6.6-8.7); Triglycerides 255 mg/dL (0-150); VLDL Cholestrol Calculation 51 mg/dL (0-30)
[2021-05-29] MEDS: methadone 10 mg Tablet PO (09:15)
[2021-05-29] MEDS: doxycycline 100 mg Tablet PO (09:15)
[2021-05-29] MEDS: benzonatate 100 mg Capsule PO (09:17)
[2021-05-29] MEDS: cefdinir 300 MG CAPSULE PO (09:17)
[2021-05-29] MEDS: terbinafine 1% Cream 15 gm 1 APPLIC TOPICAL (09:18)
[2021-05-29] MEDS: aspirin 81 mg EC Tablet PO (10:54)
[2021-05-29 11:38] LABS: Creatine Phosphokinase 157 U/L (39-308)
--- NOTE | 2021-05-29 11:58 | P.DS_ITS ---
Discharge Providers Date of Admission: 05/24/21 21:27 Date of Discharge: May 29, 2021 Attending Provider at Admission: Michele Yang MD Attending Provider at Discharge: Omi Diaz MD Primary Care Provider: Jason Askew Diagnoses at Discharge Discharge Diagnosis (1) Acute encephalopathy: Status: Acute (2) Pneumonia: Status: Acute Qualifiers: Laterality: bilateral Lung location: unspecified part of lung Pneumonia type: due to unspecified organism Qualified Code(s): J18.9 - Pneumonia, unspecified organism (3) Rhabdomyolysis: Status: Acute Qualifiers: Rhabdomyolysis type: non-traumatic Qualified Code(s): M62.82 - Rhabdo myolysis (4) Other coronavirus as the cause of diseases classified elsewhere: Status: Acute (5) Transaminitis: Status: Acute (6) Chronic low back pain: Status: Acute Qualifiers: Back pain laterality: bilateral Sciatica presence: unspecified whether sciatica present Qualified Code(s): M54.50 - Low back pain, unspecified; G89.29 - Other chronic pain (7) Chronic hepatitis C: Status: Acute Reason for Visit Reason for Visit: AMS, BACK PAIN Hospital Course Hospital Course History as per H&P: Kimo Lee is a 45 year old male with past medical history of chronic low back pain, on methadone 10 mg p.o. 3 times daily, came in with chief complaint of, generalized weakness and confusion progressively worsening over the last 3 days. Patient was moving recently to a different house and was doing a lot of heavy lifting over the last week or so and has been complaining of increasing lower back pain, chest pain ,headache , right arm pain.? When I examined the patient he was AO*3, looked very fatigued, history was mostly provided by the according to her yesterday he was in bed all day, with very poor oral intake, when he woke up today in the morning he was extremely confused, had urinated on himself overnight, was not able to stand. Hospital course: Patient was monitored to the hospital for further evaluation and management of acute metabolic encephalopathy and lower lip weakness. On admission patient was found to be in rhabdomyolysis for which he was started on IV hydration. His CPK gradually improved. His metabolic encephalopathy gradually improved as well. Patient did show improvement with his weakness but continued to have difficulty with gait and balance for which MRI was done which was consistent with multiple small areas of deep white matter infarction including left basal ganglia/pallidus and bilateral subcortical white matter. Patient's blood work also showed deranged lipid panel. Patient's COVID-19 PCR was checked which was negative for SARS Covid 2 but was positive for coronavirus 229E which is consistent with coronavirus infection other than COVID-19. He was started on broad-spectrum antibiotics for pneumonia seen on chest imaging. He responded well to the treatment and has been on room air for last 3 days. He is been transitioned to oral antibiotics. He is to take cefdinir and doxycycline for next 3 days. Patient symptoms are most likely secondary to a combination of rhabdomyolysis, possible viral myopathy in setting of chronic stroke. For safe discharge planning further discussions were done with patient and patient's family. Patient would benefit with physical therapy but unfortunately because of insurance issues physical therapy will not be covered as an outpatient both at home, SNF. Further discussions were made with family and they agreed for discharge with home exercise program. Patient is been discharged hemodynamically stable condition advised to follow-up with a primary care provider within next 1 week, neurologist within next 2 weeks and is being discharged on event monitor to rule out any arrhythmias. Physical Exam Const: COMMON NORMALS: no acute distress and patient oriented x3 GENERAL APPEARANCE: cooperative NUTRITIONAL APPEARANCE: obese HENMT: COMMON NORMALS: normocephalic, atraumatic and oropharynx normal HEAD & SCALP: normocephalic and atraumatic Neck/C-Spine: COMMON NORMALS: no JVD OTHER: Swelling of right side of the neck with infiltrated EJ IV improving Chest: CHEST: Yes Symmetrical chest wall rise Resp: COMMON NORMALS: normal respiratory effort and clear to auscultation bilaterally EFFORT & INSPECTION: Yes symmetric chest movement AUSCULTATION: clear to auscultation bilaterally Cardio: COMMON NORMALS: no JVD, regular rate, regular rhythm, S1 normal heart sound present, S2 normal heart sound present, No gallops present (Cardio), No murmurs present (Cardio), No rub (Cardio) and Peripheral pulses 2+ throughout RATE: regular rate RHYTHM: regular rhythm HEART SOUNDS: S1 normal heart sound present and S2 normal heart sound present PERIPHERAL PULSES: Peripheral pulses 2+ throughout GI: COMMON NORMALS: Normal to inspection, nondistended, normoactive bowel sounds present, Soft to palpation, non-tender, No hepatosplenomegaly present and no masses AUSCULTATION: Yes normoactive bowel sounds PALPATION: Yes Soft to palpation and Yes No hepatosplenomegaly present RECTAL EXAM: Yes deferred Extremity: COMMON NORMALS: no joint enlargement, no clubbing, cyanosis or edema and no pedal edema Neuro: COMMON NORMALS: patient oriented x3 and moves all extremities Skin: COMMON NORMALS: no rashes or lesions noted GENERAL SKIN EXAM: no rashes or lesions noted Urinary Catheter Management: Enriquez: Cath Placed During This Visit: yes Reason for Continuing Indwelling Catheter: Acute Urinary Retention or Obstruction Urinary Catheter Date of Insertion: 05/24/21 Urinary Catheter Time of Insertion: 14:51 Discharge Data Studies Completed and Pending Completed Studies During Hospitalization Category Date Time Status CT chest abd pel wo con Urgent Cat Scan 05/24/21 16:[address] head wo con* [id number] Urgent Cat Scan 05/24/21 12:[address] head wo con* [id number] Urgent Cat Scan 05/24/21 19:35 Completed XR chest 1V portable [id number] Q48H Exams 05/29/21 06:00 Completed XR chest 1V portable [id number] Stat Exams 05/24/21 14:17 Completed MR head wo con* [id number] Routine MRI 05/28/21 10:30 Completed US abdomen limited [id number] Routine Ultrasound 05/25/21 22:52 Completed Pending at discharge Category Date Time Status XR chest 1V portable [id number] Q48H Exams 05/31/21 06:00 Ordered XR chest 1V portable [id number] Q48H Exams 06/02/21 06:00 Ordered Blood Culture Stat Lab 05/24/21 15:05 Results Complete Blood Count w/Auto AM LABS Lab 05/30/21 04:00 Ordered Comprehensive Metabolic Panel AM LABS Lab 05/30/21 04:00 Ordered Radiology Impressions Chest/Abdomen/Pelvis CT 05/24/21 16:31 IMPRESSION: 1. Patchy bilateral airspace infiltrates. 2. Scattered prominent mediastinal lymph nodes measuring up to 8.2 mm short axis, nonspecific. IMPRESSION: 1. Negative for focal acute inflammatory process in the abdomen or pelvis. 2. Bilateral punctate nonobstructing renal calyceal stones. 3. Constipation. 4. Enriquez catheter in the urinary bladder with some air presumed iatrogenic. 5. Small left inguinal hernia containing omentum without bowel or inflammation. Head CT 05/24/21 19:35 IMPRESSION: Negative for intracranial hemorrhage or mass effect Abdomen Ultrasound 05/25/21 22:52 IMPRESSION: 1. Negative gallbladder. 2. No bile duct dilatation. 3. Decreased attenuation throughout the liver. Consider hepatocellular disease such as cirrhosis or hepatic steatosis. Head MRI 05/28/21 10:30 IMPRESSION: 1. 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 No midline shift hemorrhage or mass effect. 2. There is near complete opacification of the right mastoid air cells and small left mastoid effusion. Chest X-Ray 05/29/21 06:00 IMPRESSION: Overall mild improvement in aeration bilaterally. Improving areas of hazy opacification. Laboratory Results WBC 9.5 10^3/uL (4.0-10.0) 05/29/21 07:40 RBC 5.01 10^6/uL (4.1-5.3) 05/29/21 07:40 Hgb 14.5 g/dL (11.7-16.6) 05/29/21 07:40 Hct 41.6 % (42.0-52.0) L 05/29/21 07:40 MCV 83.0 fl (80-94) 05/29/21 07:40 MCH 28.9 pg (28.0-34.0) 05/29/21 07:40 MCHC 34.9 g/dL (30.0-36.0) 05/29/21 07:40 RDW 14.4 % (12.1-15.1) 05/29/21 07:40 Plt Count 287 10^3/cmm (130-400) 05/29/21 07:40 MPV 9.6 fL (7.4-10.4) 05/29/21 07:40 Neut % (Auto) 53.7 % 05/29/21 07:40 Lymph % (Auto) 30.9 % 05/29/21 07:40 [place] % (Auto) 9.7 % 05/29/21 07:40 Eos % (Auto) 3.6 % 05/29/21 07:40 Baso % (Auto) 0.5 % 05/29/21 07:40 Neut # (Auto) 5.08 10^3/uL (1.8-7.7) 05/29/21 07:40 Lymph # (Auto) 2.9 10^3/uL (0.8-4.8) 05/29/21 07:40 [place] # (Auto) 0.9 10^3/uL (0.2-0.9) 05/29/21 07:40 Eos # (Auto) 0.3 10^3/uL (0.0-0.8) 05/29/21 07:40 Baso # (Auto) 0.1 10^3/uL (0.0-0.1) 05/29/21 07:40 Nucleated RBC % (auto) 0 % 05/29/21 07:40 Nucleated RBCs # 0.0 /100WBC 05/29/21 07:40 D-Dimer 4.92 ug/mIFEU (0-0.59) H 05/28/21 13:40 Specimen Type Arterial 05/24/21 15:09 Sample Site Radial, left 05/24/21 15:09 ABG pH 7.47 (7.35-7.45) H 05/24/21 15:09 ABG pCO2 31.5 mmHg (35-45) L 05/24/21 15:09 ABG pO2 91.2 mmHg (80.0-100.0) 05/24/21 15:09 ABG HCO3 23.1 mmol/L (22-26) 05/24/21 15:09 ABG O2 Saturation 98.2 05/24/21 15:09 ABG Base Excess 0.3 mmol/L (-2.0-2.0) 05/24/21 15:09 James Test Pos 05/24/21 15:09 A-a O2 Gradient 5.5 mmHg (5-10) 05/24/21 15:09 Hematocrit 42.7 % (42-52) 05/24/21 15:09 Hgb O2 Saturation 97.3 % (95-100) 05/24/21 15:09 Carboxyhemoglobin 0.5 %THgb (0.4-20.1) 05/24/21 15:09 Methemoglobin 0.4 % (0.4-1.5) 05/24/21 15:09 Total Hemoglobin 13.9 g/dL (14-18) L 05/24/21 15:09 Sodium 145.0 mmol/L (131-143) H 05/24/21 15:09 Potassium 4.1 mmol/L (3.5-5.0) 05/24/21 15:09 Glucose 103.0 mg/dL (70-115) 05/24/21 15:09 Ionized Calcium 1.1 mmol/L (1.1-1.4) 05/24/21 15:09 O2 Delivery Device Nc 05/24/21 15:09 O2 Liters/Min 1.0 % 05/24/21 15:09 FiO2 24.0 % 05/24/21 15:09 Account Adjuster ID [place] 05/24/21 15:09 Sodium 136 mmol/L (136-145) 05/29/21 07:40 Potassium 3.8 mmol/L (3.5-5.1) 05/29/21 07:40 Chloride 102 mmol/L (98-107) 05/29/21 07:40 Carbon Dioxide 22 mmol/L (22-29) 05/29/21 07:40 Anion Gap 15.8 (5-19) 05/29/21 07:40 BUN 17 mg/dL (6-20) 05/29/21 07:40 Creatinine 0.8 mg/dL (0.7-1.2) 05/29/21 07:40 GFR Calculation 105.5 mL/min (90-130) 05/29/21 07:40 Glucose 98 mg/dL (65-115) 05/29/21 07:40 Calculated Osmolality 284 mOsm/kg (285-295) L 05/29/21 07:40 Lactic Acid 1.6 mmol/L (0.5-2.2) 05/24/21 13:40 Calcium 8.5 mg/dL (8.5-10.5) 05/29/21 07:40 Magnesium 2.1 mg/dL (1.7-2.3) 05/25/21 02:40 Iron 28 ug/dL (59-158) L 05/28/21 13:40 TIBC 282 mcg/dl 05/28/21 13:40 % Saturation 9.9 % (20-50) L 05/28/21 13:40 Unsat Iron Binding 254 ug/dL (112-347) 05/28/21 13:40 Total Bilirubin 0.6 mg/dL (0.15-1.2) 05/29/21 07:40 AST 26 U/L (0-40) 05/29/21 07:40 ALT 156 U/L (0-41) H 05/29/21 07:40 Alkaline Phosphatase 96 IU/L (40-130) 05/29/21 07:40 Ammonia 28 umol/L (16-60) 05/26/21 05:00 Creatine Kinase 157 U/L (39-308) 05/29/21 07:40 C-Reactive Protein 27.0 mg/L (0.0-4.9) H 05/28/21 13:40 NT-Pro-B Natriuret Pep 165 pg/mL (0-125) H 05/28/21 13:40 Total Protein 6.9 g/dL (6.6-8.7) 05/29/21 07:40 Albumin 3.8 g/dL (3.5-5.2) 05/29/21 07:40 Globulin 3.1 g/dL (1.3-4.6) 05/29/21 07:40 Triglycerides 255 mg/dL (0-150) H 05/29/21 07:40 Cholesterol 202 mg/dL (0-200) H 05/29/21 07:40 LDL Cholesterol, Calc 123 mg/dL (50-129) 05/29/21 07:40 Total VLDL Cholesterol 51 mg/dL (0-30) H 05/29/21 07:40 HDL Cholesterol 28 mg/dL (60-100) L 05/29/21 07:40 Cholesterol/HDL Ratio 7.21 mg/dL (1.0-5.00) H 05/29/21 07:40 Vitamin B12 1194 pg/mL (232-1245) 05/26/21 01:35 Folate 19.8 ng/mL (4.5-32.2) 05/26/21 01:35 Procalcitonin 0.76 ng/mL (0-0.5) H 05/28/21 13:40 TSH 0.98 uIU/mL (0.27-4.20) 05/28/21 13:40 Urine Color Yellow (Yellow) 05/24/21 14:57 Urine Appearance Clear (CLEAR) 05/24/21 14:57 Urine pH 6 (5-7) 05/24/21 14:57 Ur Specific [place] 1.010 (1.005-1.030) 05/24/21 14:57 Urine Protein Neg (Negative) 05/24/21 14:57 Urine Glucose (UA) Norm (Normal) 05/24/21 14:57 Urine Ketones Negative (Negative) 05/24/21 14:57 Urine Blood 2+ (Negative) H 05/24/21 14:57 Urine Nitrate Negative (Negative) 05/24/21 14:57 Urine Bilirubin Neg (Negative) 05/24/21 14:57 Urine Urobilinogen 1 mg/dL (Negative) H 05/24/21 14:57 Ur Leukocyte Esterase Negative (Negative) 05/24/21 14:57 Urine RBC 0-4 /hpf (0-2) H 05/24/21 14:57 Urine WBC Rare /hpf (0-5) 05/24/21 14:57 Ur Squamous Epith Cells None /hpf (0-5) 05/24/21 14:57 Amorphous Sediment Not Reportable 05/24/21 14:57 Urine Bacteria None /hpf (NONE) 05/24/21 14:57 Vancomycin Trough 11.6 ug/mL (10-15) 05/26/21 01:35 Urine Opiates Screen Negative ng/mL (Negative) 05/24/21 14:57 Ur Barbiturates Screen Negative ng/mL (Negative) 05/24/21 14:57 Ur Phencyclidine Scrn Negative ng/mL (Negative) 05/24/21 14:57 Ur Amphetamines Screen Negative ng/mL (Negative) 05/24/21 14:57 U Benzodiazepines Scrn Negative ng/mL (Negative) 05/24/21 14:57 Urine Cocaine Screen Negative ng/mL (Negative) 05/24/21 14:57 U Marijuana (THC) Screen Negative ng/mL (Negative) 05/24/21 14:57 Ethyl Alcohol < 10 mg/dL (0-10) 05/24/21 13:40 RPR Nonreactive (Nonreactive) 05/26/21 01:35 Coronavirus 229E (PCR) Detected (NOT DETECT) A 05/24/21 13:45 SARS-CoV-2 (PCR) Not detected (NOT DETECT) 05/24/21 13:45 Vitals Last Vital Signs Temp 98.1 F 05/29/21 08:00 Pulse 66 05/29/21 10:23 Resp 17 05/29/21 10:23 BP 133/76 05/29/21 08:00 Pulse Ox 96 05/29/21 10:23 Discharge Plan Discharge Patient Disposition: Home Condition: Stable Prescriptions: New Advair Diskus 250-50 mcg/dose Blister With Device 1 puff inhalation BID.RESPIRATORY 14 Days Qty: 28 0RF aspirin 81 mg Tablet,Delayed Release (Dr/Ec) 81 mg PO DAILY Qty: 30 0RF doxycycline monohydrate 100 mg Tablet 100 mg PO BID 3 Days Qty: 6 0RF cefdinir 300 mg Capsule 300 mg PO BID 3 Days Qty: 6 0RF ferrous gluconate 324 mg (37.5 mg iron) Tablet 324 mg PO 00,1999 30 Days Qty: 60 0RF Lipitor 80 mg tablet 80 mg PO QPM Qty: 30 0RF Continued carisoprodol [Soma] 350 mg tablet 350 mg PO BID PRN (Reason: muscle pain) Qty: 60 5RF methadone 10 mg tablet 10 mg PO Q8H 30 Days Qty: 90 0RF multivitamin Tablet 1 tab PO DAILY 0RF acetaminophen 500 mg Tablet 1,000 mg PO Q6H PRN (Reason: Pain) 0RF Advil 200 mg Tablet 800 mg PO Q6H PRN (Reason: Pain) 0RF epinephrine 0.3 mg/0.3 mL Auto-Injector 0.3 mg IM Q15M PRN (Reason: Allergic Reaction) 0RF Narcan 4 mg/actuation spray,non-aerosol See Rx Instructions .ROUTE .COMPLEX 0RF Rx Instructions: intranasally DIRECTED PRN Discharge Orders: Discharge Order (Routine); Ordered 05/29/21 Ordered By: Omi Diaz Other Ambulatory Orders: MCT/Event Monitor 21 Days (Routine) Timeframe: 1 Week Facility: [facility] - Location: Radiology Ordered By: Omi Diaz DME: Rut (Order) Location: None Selected Ordered By: Omi Diaz DME: Arnaud (Order) Location: None Selected Ordered By: Omi Diaz Referrals: Rita Del Toro MD [Physician] - 2 weeks Jason Askew [Primary Care Provider] - 7-10 days Discharge Diet: Cardiac Discharge Activity: Resume usual activity Patient Instructions: Aspiration, Iron Supplements (By mouth), Doxycycline (By mouth), Atorvastatin (By mouth), Cefdinir (By mouth), Fluticasone/Salmeterol (By breathing), Hepatitis C, Hepatic Encephalopathy (DC), Opioid Safety Activity Restrictions/Additional Instructions: Please follow-up with your primary care provider within next 2 weeks. Please follow-up with Dr. Del Toro from neurology within next 2 weeks. You have a event monitor which has been placed. Please take aspirin 81 mg daily. Please start taking atorvastatin in the next 2 weeks after checking CMP and CPK with your primary care provider first. Cirrhotic liver appearance: Please discuss with your doctor additional follow-up with regards to your liver due to concern of developing fibrosis or early cirrhosis. Discharge Attestations Time Spent in Discharge Care*: greater than 30 min Specific Discharge Activities: educating patient, educating and/or supporting family/caregiver, discussing with behavioral health case manager/social workers/dc planners, documenting/other paperwork and evaluating patient/reviewing data Status at Discharge: Cognitive status at discharge: cognitively intact , Behavioral status at discharge: cooperative , Functional status at discharge: uses cane/walker , Overall status at discharge: patient is progressing back to baseline Quality Metrics Clinical Quality Measures [ Cerebrovascular Accident { Contraindication to Antithrombotic: None; antithrombotic prescribed; Contraindication to Anticoagulation: Overlap treatment not indicated; Contraindication to Statin: None; Statiin prescribed; Contraindication to antithrombotic day 2: Other; Contraindication to tPA: Treatment not indicated;}] Coding Level of Care Code Acute Chg FW DC note Diagnoses Acute encephalopathy G93.40 Pneumonia J18.9 Laterality: bilateral Lung location: unspecified part of lung Pneumonia type: due to unspecified organism Rhabdomyolysis M62.82 Rhabdomyolysis type: non-traumatic Other coronavirus as the cause of diseases classified elsewhere B97.29 Transaminitis R74.01 Chronic low back pain M54.50; G89.29 Back pain laterality: bilateral Sciatica presence: unspecified whether sciatica present Chronic hepatitis C B18.2
--- NOTE | 2021-05-29 13:48 | PC.NURSE ---
patient and given discharge instructions. and both verbalized understanding of instructions. patient will have event monitor placed at 1430.
--- NOTE | 2021-05-29 14:38 | PC.NURSE ---
patient taken to [facility] for cardiac event monitor. patient's said she will pick patient's meds up from pharmacy on their way home following the heart monitor. patient's said all DME was delivered to their home.
== END 2021-05-29 14:41 | disposition home or self-care (01) | DRG 193 ==
LOC: ER 12:49 → CSU 22:13 → MEDSURG 05-25 16:35
PROVIDERS: Internal Medicine; Admitting Provider Internal Medicine; Emergency Provider Family Medicine; PCP Internal Medicine; Visit Provider Student in an Organized Health Care Education/Training Program
DX: J12.89 Other viral pneumonia (principal); G93.41 Metabolic encephalopathy; M62.82 Rhabdomyolysis; B97.29 Other coronavirus as the cause of diseases classified elsewhere; G89.29 Other chronic pain; M54.50 Low back pain, unspecified; B18.2 Chronic viral hepatitis C; F32.A Depression, unspecified; Z87.891 Personal history of nicotine dependence; Z79.891 Long term (current) use of opiate analgesic; E86.0 Dehydration; R06.81 Apnea, not elsewhere classified
CPT/HCPCS: 36415; 36600; 51702; 70450; 70551; 71045; 71250; 74176; 76705; 80051; 80053; 80061; 80202; 80306; 80307; 81001; 82140; 82330; 82550; 82607; 82746; 82805; 83540; 83550; 83605; 83735; 83880; 84145; 84443; 85025; 85378; 86140; 86592; 87040; 87635; 87641; 94640; 96372; 97110; 97116; 97161; 97166; 97530; 99291; J0692; J0696; J1650; J2060; J2250; J3370; J3490; J7030; J7050; Q0163

== ENCOUNTER 2021-06-19 14:06 | Emergency (ER) | payer MEDICAID, SELFPAY ==
--- NOTE | 2021-06-19 14:08 | ED_ITS ---
HPI - Altered Mental Status General: Chief Complaint: General Medical Stated Complaint: ENCEPHALOPATHY Time Seen by Provider: 06/19/21 14:08 History of Present Illness: Mr. Rucker is a 45-year-old gentleman with history of chronic low back pain on methadone who presents to the emergency department due to altered mental status and deteriorating neurologic status. He was admitted to the hospital on 05/24 for generalized weakness and encephalopathy. It sounds like he was found to have rhabdomyolysis. Additionally at that time he was found to have multiple small areas of stroke of somewhat unclear etiology. Additionally he had coronavirus but not COVID-19. He slowly improved however it took him a long time upon discharge to gain generalized function. Last week he was able to ambulate and was improving overall however over the past few days he has had marked decrease in functional status again. He has difficulty walking and continued difficulty setting up. He has had urinary incontinence. Overall the course of symptoms has been worsening. Intensity is moderate to severe. No new infectious symptoms, or other specific exacerbating, or alleviating factors identified. Onset (ago): day(s) Timing confirmed by: family member Severity: severe Consistency of symptoms: Getting Worse Context: other Associated symptoms: Reports other Review of Systems General: Reports: ROS unobtainable due to mental status PFSH ED PFSH: Medical History Arrhythmia Cervical disc disease Chronic hepatitis C Chronic low back pain Depression First metacarpal bone fracture Stroke Transaminitis Surgical History History of knee surgery Family History Father No problems noted. Mother Dementia Social History Smoking and tobacco status: never smoked Quit status (tobacco): has quit using tobacco Second hand smoke exposure: No Smoking risk assessment/counseling performed?: No Alcohol intake: never Desire information about alcohol rehabilitation?: No Counseling given: No Desire information about substance/drug rehabilitation?: No Counseling given: No Adopted: No Caregiver/support person: No Lives independently: Yes Household members: spouse Housing: House Marital status: Number of children: 1 Highest education level completed: Some College, No Degree service: Yes Current occupational status: disabled History of recent travel: No Physical Exam Const: COMMON NORMALS: alert GENERAL APPEARANCE: ill appearing HENMT: COMMON NORMALS: normocephalic, atraumatic, external ears normal and Normal external nose present HEAD & SCALP: normocephalic and atraumatic NOSE: Normal external nose present EXTERNAL EAR: Yes external ears normal Eye: COMMON NORMALS: conjunctivae normal CONJUNCTIVA: Yes conjunctivae normal SCLERA: sclerae normal Neck/C-Spine: COMMON NORMALS: supple GENERAL: Yes trachea midline Resp: COMMON NORMALS: normal respiratory effort EFFORT & INSPECTION: Yes able to speak in complete sentences Cardio: COMMON NORMALS: regular rate and regular rhythm RATE: regular rate RHYTHM: regular rhythm GI: COMMON NORMALS: Soft to palpation PALPATION: Yes Soft to palpation and No Tenderness to palpation present (GI) PERCUSSION: normal to percussion Extremity: GENERAL: Yes normal exam except as noted and No edema Neuro: COMMON NORMALS: moves all extremities SENSORIUM/ORIENTATION: Yes alert OTHER: Patient is ataxic and has generalized weakness. Patient is incontinent of urine. Chorea-like movements. Psych: COMMON NORMALS: mental status grossly normal and Normal thought process present THOUGHT PROCESS: Normal thought process present Course ED course: - Patient was seen and evaluated by me at bedside - Patient placed on cardiac monitors, IV access obtained - Initial evaluation notable for exam as above, significant ataxia, waxing and waning mental status, incontinence - Labs notable for no leukocytosis. Metabolic panel without acute derangement to explain symptoms, patient does have dehydration and elevated CK likely secondary to uncontrollable muscle movements though no seizures are identified. Fluids ordered. - Imaging notable for no acute finding identified on plain head CT. - Upon serial reexamination after treatment the patient was similar - Based on patient history, evaluation, labs, and imaging as interpreted the most likely cause of the patient's condition is unclear though patient certainly appears to have significant abnormal neurologic pathology - The results of ED evaluation were discussed with the patient and his family member. Based on neurology recommendations in conjugation with my exam patient the patient requires transfer to tertiary facility with neurology subspecialty for further evaluation. 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 - I discussed the case initially with neurology on-call at [facility] in [facility], she requested patient to be transfered ED to ED. I discussed with the ED physician. - Patient transferred from the emergency department without acute deterioration compared to presentation. Note: Click bubbles or prepopulated loco in note writing are used for assistance with data collection and billing and are inherently more limited than narrative and other text portions of this note. Please use narrative for additional clinical history and defer to narrative/free test for any case of contradictory information. If information appears in only free text or click bubble it should be considered present or absent as reported. Please contact note sign writer letterer or painter for clarifications of clinical information or contradictory information. MDM is a brief summary, contradictory or erroneous seeming information should be clarified and full note should be reviewed. Vital Signs: Vital signs: Vital Signs Temperature 98.2 F 06/19/21 14:16 Pulse Rate 82 06/19/21 20:51 Respiratory Rate 20 H 06/19/21 20:51 Blood Pressure 125/81 06/19/21 20:51 Pulse Oximetry 92 06/19/21 20:51 MDM - Altered Mental Status Medical Decision Making 45-year-old gentleman with abnormal neurologic findings presenting from neurology clinic. Patient has ataxia, incontinence, and chorea-like movements as well as waxing waning mental status. He was previously hospitalized for similar and was making slow improvement prior to decompensation over the past week. Patient no longer ambulatory. In clinic today patient was evaluated by neurologist and LP was attempted, referred for ED for further evaluation. Ultimately patient requires transfer for tertiary neurology service evaluation and care. Transferred to [facility] ED to ED after discussion with ED physician after discussion with neurology physician. Medical Records I reviewed the patient's medical records. Lab Data I reviewed the patient's lab results. : 06/19/21 18:00 06/19/21 17:[address] 06/19/21 14:43 IMPRESSION: Negative for intracranial hemorrhage or mass effect. Laboratory Results WBC 8.5 10^3/uL (4.0-10.0) 06/19/21 18:00 RBC 4.57 10^6/uL (4.1-5.3) 06/19/21 18:00 Hgb 13.8 g/dL (11.7-16.6) 06/19/21 18:00 Hct 40.5 % (42.0-52.0) L 06/19/21 18:00 MCV 88.6 fl (80-94) 06/19/21 18:00 MCH 30.2 pg (28.0-34.0) 06/19/21 18:00 MCHC 34.1 g/dL (30.0-36.0) 06/19/21 18:00 RDW 13.5 % (12.1-15.1) 06/19/21 18:00 Plt Count 329 10^3/cmm (130-400) 06/19/21 18:00 MPV 10.0 fL (7.4-10.4) 06/19/21 18:00 Neut % (Auto) 49.6 % 06/19/21 18:00 Lymph % (Auto) 39.1 % 06/19/21 18:00 [place] % (Auto) 7.0 % 06/19/21 18:00 Eos % (Auto) 3.5 % 06/19/21 18:00 Baso % (Auto) 0.7 % 06/19/21 18:00 Neut # (Auto) 4.23 10^3/uL (1.8-7.7) 06/19/21 18:00 Lymph # (Auto) 3.3 10^3/uL (0.8-4.8) 06/19/21 18:00 [place] # (Auto) 0.6 10^3/uL (0.2-0.9) 06/19/21 18:00 Eos # (Auto) 0.3 10^3/uL (0.0-0.8) 06/19/21 18:00 Baso # (Auto) 0.1 10^3/uL (0.0-0.1) 06/19/21 18:00 Nucleated RBC % (auto) 0 % 06/19/21 18:00 Nucleated RBCs # 0.0 /100WBC 06/19/21 18:00 PT 14.00 SECONDS (12.1-14.9) 06/19/21 18:00 INR 1.04 (0.8-1.2) 06/19/21 18:00 APTT 30.2 SECONDS (23.9-36.7) 06/19/21 18:00 Sodium 139 mmol/L (136-145) 06/19/21 17:00 Potassium 4.2 mmol/L (3.5-5.1) 06/19/21 17:00 Chloride 103 mmol/L (98-107) 06/19/21 17:00 Carbon Dioxide 17 mmol/L (22-29) L 06/19/21 17:00 Anion Gap 23.2 (5-19) H 06/19/21 17:00 BUN 11 mg/dL (6-20) 06/19/21 17:00 Creatinine 1.2 mg/dL (0.7-1.2) 06/19/21 17:00 GFR Calculation 66.1 mL/min (90-130) L 06/19/21 17:00 Glucose 70 mg/dL (65-115) 06/19/21 17:00 Calculated Osmolality 286 mOsm/kg (285-295) 06/19/21 17:00 Calcium 9.2 mg/dL (8.5-10.5) 06/19/21 17:00 Magnesium 2.3 mg/dL (1.7-2.3) 06/19/21 17:00 Total Bilirubin 0.6 mg/dL (0.15-1.2) 06/19/21 17:00 AST 43 U/L (0-40) H 06/19/21 17:00 ALT 27 U/L (0-41) 06/19/21 17:00 Alkaline Phosphatase 93 IU/L (40-130) 06/19/21 17:00 Ammonia 31 umol/L (16-60) 06/19/21 18:00 Creatine Kinase 941 U/L (39-308) H* 06/19/21 17:00 Total Protein 7.4 g/dL (6.6-8.7) 06/19/21 17:00 Albumin 4.7 g/dL (3.5-5.2) 06/19/21 17:00 Globulin 2.7 g/dL (1.3-4.6) 06/19/21 17:00 TSH 1.78 uIU/mL (0.27-4.20) 06/19/21 17:00 Urine Color Yellow (Yellow) 06/19/21 20:50 Urine Appearance Clear (CLEAR) 06/19/21 20:50 Urine pH 5 (5-7) 06/19/21 20:50 Ur Specific [place] 1.030 (1.005-1.030) 06/19/21 20:50 Urine Protein Neg (Negative) 06/19/21 20:50 Urine Glucose (UA) 1+ (Normal) H 06/19/21 20:50 Urine Ketones Negative (Negative) 06/19/21 20:50 Urine Blood Neg (Negative) 06/19/21 20:50 Urine Nitrate Negative (Negative) 06/19/21 20:50 Urine Bilirubin 1+ (Negative) H 06/19/21 20:50 Urine Urobilinogen Neg mg/dL (Negative) 06/19/21 20:50 Ur Leukocyte Esterase Negative (Negative) 06/19/21 20:50 SARS-CoV-2 Ag (Rapid) Negative (Negative) 06/19/21 17:00 Critical Care Time Critical Care Time: Critical Care Time: Yes Total Critical Care Time: 40 Attestation: Due to a high probability of clinically significant, possibly life threatening deterioration, the patient required my highest level of attention and preparedness to intervene emergently and I personally spent this critical care time directly and personally managing the patient. This critical care time included obtaining a history; examining the patient; pulse oximetry; ordering and review of laboratory and imaging studies; arranging urgent treatment with development of a management plan; evaluation of patient's response to treatment; frequent reassessment; and, discussions with other providers as applicable. It was exclusive of separately billable procedures. Primary system involved is neuro Discharge Plan Discharge Patient Disposition: Transfer to ED Clinical Impression: Altered mental status, Rhabdomyolysis, Encephalitis Condition: Stable Prescriptions: No Action carisoprodol [Soma] 350 mg tablet 350 mg PO BID PRN (Reason: muscle pain) Qty: 60 5RF methadone 10 mg tablet 10 mg PO Q8H 30 Days Qty: 90 0RF multivitamin Tablet 1 tab PO DAILY 0RF epinephrine 0.3 mg/0.3 mL Auto-Injector 0.3 mg IM Q15M MDD 2 pens PRN (Reason: Allergic Reaction) 0RF Narcan 4 mg/actuation spray,non-aerosol See Rx Instructions .ROUTE .COMPLEX 0RF Rx Instructions: intranasally DIRECTED PRN atorvastatin [Lipitor] 80 mg tablet 80 mg PO QPM Qty: 30 0RF fluticasone propion-salmeterol [Advair Diskus] 250-50 mcg/dose Blister With Device 1 inh INHALATION BID PRN (Reason: pts states pt hasnt used and uses prn) 0RF aspirin 81 mg tablet,delayed release (/EC) 81 mg PO QAM 0RF ferrous gluconate 324 mg (37.5 mg iron) tablet 324 mg PO BID 0RF Referrals: Jason Askew [Primary Care Provider] - Coding Level of Care Code ED Principal System Software Engineer for Chg Fwd Exam Comprehensive
[2021-06-19 14:16] VITALS: BP 88/59; PULSE 79; RESP 18; TEMP 36.8; O2SAT 98; BMI 38.0
[2021-06-19 14:35] VITALS: BP 130/86; PULSE 86; RESP 18; O2SAT 93
--- NOTE | 2021-06-19 14:43 | CTR_ITS ---
PROCEDURE INFORMATION: Exam: CT Head Without Contrast Exam date and time: 06/19/2021 2:43 PM Age: 45 years old Clinical indication: Altered mental status/memory loss; Additional info: AMS, ataxia TECHNIQUE: Imaging protocol: Computed tomography of the head without contrast. Radiation optimization: All CT scans at this facility use at least one of these dose optimization techniques: automated exposure control; mA and/or kV adjustment per patient size (includes targeted exams where dose is matched to clinical indication); or iterative reconstruction. COMPARISON: e+1 MR head wo con [id number] 05/28/2021 6:14 PM RADIATION DOSE METRICS: Total DLP (mGy-cm): 968.69 FINDINGS: Brain: Moderate diffuse white matter disease likely reflecting chronic microvascular ischemic changes. Cerebral ventricles: No ventriculomegaly. Paranasal sinuses: Visualized sinuses are unremarkable. No fluid levels. Mastoid air cells: Minimal right mastoid air cell opacification may reflect a chronic inflammatory process. Bones/joints: Unremarkable. No acute fracture. Soft tissues: Unremarkable. CT/CT head wo con* [id number] IMPRESSION: Negative for intracranial hemorrhage or mass effect.
[2021-06-19] MEDS: LORazepam 1 mg Tablet PO (16:47)
[2021-06-19 17:10] VITALS: BP 97/78; PULSE 81; RESP 18; O2SAT 94
[2021-06-19 17:51] LABS: SARS Covid-2 Antigen Negative (Negative)
[2021-06-19 18:01] VITALS: BP 110/88; PULSE 88; RESP 20; O2SAT 92
[2021-06-19 18:09] LABS: Basophils # 0.1 10^3/uL (0.0-0.1); Basophils % 0.7 %; Eosinophils # 0.3 10^3/uL (0.0-0.8); Eosinophils % 3.5 %; Hematocrit 40.5 % (42.0-52.0); Hemoglobin 13.8 g/dL (11.7-16.6); Lymphocytes # 3.3 10^3/uL (0.8-4.8); Lymphocytes % 39.1 %; Mean Corpuscular HGB Conc 34.1 g/dL (30.0-36.0); Mean Corpuscular Hemoglobin 30.2 pg (28.0-34.0); Mean Corpuscular Volume 88.6 fl (80-94); Monocytes # 0.6 10^3/uL (0.2-0.9); Neutrophils # 4.23 10^3/uL (1.8-7.7); Neutrophils % 49.6 %; Nucleated Red Blood Cells % 0 %; Platelet Count 329 10^3/cmm (130-400); Red Blood Count 4.57 10^6/uL (4.1-5.3); Red Cell Distribution Width 13.5 % (12.1-15.1); White Blood Count 8.5 10^3/uL (4.0-10.0)
[2021-06-19 18:24] LABS: Ammonia 31 umol/L (16-60)
[2021-06-19 18:28] LABS: INR 1.04 (0.8-1.2)
[2021-06-19 18:29] LABS: Partial Thromboplastin Time 30.2 SECONDS (23.9-36.7)
[2021-06-19 18:33] LABS: Alanine Aminotransferase 27 U/L (0-41); Albumin Level 4.7 g/dL (3.5-5.2); Alkaline Phosphatase 93 IU/L (40-130); Aspartate Amino Transferase 43 U/L (0-40); Blood Urea Nitrogen 11 mg/dL (6-20); Calcium 9.2 mg/dL (8.5-10.5); Chloride 103 mmol/L (98-107); Globulin 2.7 g/dL (1.3-4.6); Glucose 70 mg/dL (65-115); Magnesium 2.3 mg/dL (1.7-2.3); Osmolality Calculated 286 mOsm/kg (285-295); Potassium 4.2 mmol/L (3.5-5.1); Sodium 139 mmol/L (136-145); Thyroid Stimulating Hormone 1.78 uIU/mL (0.27-4.20); Total Bilirubin 0.6 mg/dL (0.15-1.2); Total Protein 7.4 g/dL (6.6-8.7)
[2021-06-19 18:34] LABS: Anion Gap 23.2 (5-19); Carbon Dioxide 17 mmol/L (22-29)
[2021-06-19 18:35] LABS: Creatine Phosphokinase 941 U/L (39-308); Glomerular Filtration Rate 66.1 mL/min (90-130)
[2021-06-19] MEDS: sodium chloride 0.9% 1,000 ML 999 ML IV (19:05)
[2021-06-19 19:15] VITALS: BP 136/118; PULSE 86; RESP 18; O2SAT 94
[2021-06-19 20:51] VITALS: BP 125/81; PULSE 82; RESP 20; O2SAT 92
[2021-06-19 20:56] LABS: Add Urine Microscopic? NO; Charge for UA Resulting for Rev
[2021-06-19 21:24] LABS: Bilirubin Urine 1+ (Negative); Blood Urine Neg (Negative); Glucose Urine UA 1+ (Normal); Ketones Urine Negative (Negative); Leukocyte Esterase Urine Negative (Negative); Nitrate Urine Negative (Negative); Protein Urine Neg (Negative); Urine Appearance Clear (CLEAR); Urine Color Yellow (Yellow); Urobilinogen Urine Neg (Negative); pH Urine 5 (5-7)
== END 2021-06-19 21:25 ==
PROVIDERS: Emergency Provider Emergency Medicine; PCP Internal Medicine
DX: R41.82 Altered mental status, unspecified (principal); G04.90 Encephalitis and encephalomyelitis, unspecified; M62.82 Rhabdomyolysis; Z79.82 Long term (current) use of aspirin; Z79.891 Long term (current) use of opiate analgesic; Z86.19 Personal history of other infectious and parasitic diseases; Z86.73 Personal history of transient ischemic attack (TIA), and cerebral infarction without residual deficits; Z87.891 Personal history of nicotine dependence; Z20.822 Contact with and (suspected) exposure to COVID-19
CPT/HCPCS: 36415; 62270; 70450; 80053; 81003; 82140; 82550; 83735; 84443; 85025; 85610; 85730; 87040; 87426; 96360; 99205; 99285; J7030